=== PATIENT | female | born 1995 | race African-American/Black ===

== ENCOUNTER 2017-01-22 10:48 | Inpatient (IN) | payer OTHER ==
[~2017-01-22] VITALS: Ht 154.9 cm; Wt 77.1 kg
[~2017-01-22 10:48] MED LIST: ALBUTEROL0.09 MG/A1 INH; BUTALB-ACETAMI1 EACH PO; CIPRO500 M1 PO; DILAUDID2 M1 PO; IBUPROFEN800 MG PO; KEFLEX500 M1 PO; LEVSIN-SL0.125 MG SL; MULTI-DAY VITA1 EACH PO; NUVARING VAGIN1 EACH VG; NUVARING1 ICR VG; ONDANSETRON HCL4 MG PO; PREDNISONE 20MG20 MG PO; TESSALON PERLE100 MG PO; TORADOL10 MG PO; TRAMADOL50 MG PO; TYLENOL WITH C1 EACH PO; VICODIN 300 MG-1 TAB PO; VICODIN 500 MG-1 TAB PO; VITAFOL-OB CAP1 EACH PO; ZITHROMAX250 M1 PO; ZOFRAN ODT4 M1 SL; ZOFRAN ODT4 MG SL; ZOFRAN4 M1 PO; ZOFRAN4 M2 PO
--- NOTE | 2017-01-22 11:09 | NUR ---
22 YEAR FEMALE STATES THAT LAST SHE WOKE WITH WHOLE BODY PARALYSIS AND BODY PAIN WAS IN HOSPITAL ( [facility]) X 1 MONTH AND THEN WAS TRANSFERRED TO [facility] AND THEN TO [facility] IN [facility] . WAS THERE FOR OVER A MONTH AND WITH REHAB THERE SHE WALKED WITH WALKER FOR 2 MONTHS THEN GRADUATED WITH CANE. STATES THAT ON WEDNESDAY SHE STARTED WITH L LEG WEAK, SHOOTING PAIN UP HER WHOLE LEG. STATES THAT WHEN SHE TOUCHES HER LEG IT HURTS. PT CONCERNED THE SAME THING IS HAPPENING AGAIN.
--- NOTE | 2017-01-22 11:17 | NUR ---
APPRECIATE TRIAGE NOTE. PT TO ROOM 18 VIA WHEELCHAIR, ASSISTED TO STRETCHER. INFORMED WAITING PERFORMED AT THIS TIME, AWAITING PROVIDER EVAL.
--- NOTE | 2017-01-22 11:42 | ED UPPER/LOWER EXTREMITY COMPL ---
History of Present Illness General Chief Complaint: Lower Extremity Problems Stated Complaint: LT LEG WEAKNESS,PAIN Source: patient Exam Limitations: no limitations Allergies Coded Allergies: NO KNOWN ALLERGIES (07/12/16) Reconcile Medications Etonogestrel/Ethinyl Estradiol (Nuvaring Vaginal Ring) 0.12 MG -0.015 MG/24 HR VAG.RING 1 EACH VG Q30D CONTROL (Reported) use for 3 weeks, skip for 1 week Triage Note: 22 YEAR FEMALE STATES THAT LAST SHE WOKE WITH WHOLE BODY PARALYSIS AND BODY PAIN WAS IN HOSPITAL ( [facility]) X 1 MONTH AND THEN WAS TRANSFERRED TO [facility] AND THEN TO [facility] IN [facility] . WAS THERE FOR OVER A MONTH AND WITH REHAB THERE SHE WALKED WITH WALKER FOR 2 MONTHS THEN GRADUATED WITH CANE. STATES THAT ON WEDNESDAY SHE STARTED WITH L LEG WEAK, SHOOTING PAIN UP HER WHOLE LEG. STATES THAT WHEN SHE TOUCHES HER LEG IT HURTS. PT CONCERNED THE SAME THING IS HAPPENING AGAIN. Triage Nurses Notes Reviewed? yes : No Patient currently breastfeeds: No HPI: This patient is a 22-year-old female with a past mental history including ovarian torsion status post right oophorectomy, idiopathic ascending paralysis, and asthma who presented to the emergency department today for evaluation of left leg pain. The patient reported that the pain began this morning and has been getting progressively worse. She reported that the pain except a 10 out of 10 and is located from her knee, to the back of her calf, into her ankle. She reported that she is able to bear weight, but with difficulty. She reported that she did have an asthma attack last night and her breathing is still recovering. The patient reported that last May she woke up feeling pins and needles in her legs, primarily in her left leg. She reported that it felt like a charley horse. She went to school despite her pain and noticed when she was visiting her and her desk that she was unable to move her legs or get herself up out of her seat. She ended up at a hospital in [facility] where she was hospitalized for over a month. She reported that they wanted to do a muscle biopsy and a spinal tap, but she refused at that time. She was eventually transferred to a rehabilitation center and then to [place]. She eventually regained mobility and they never figured out why this paralysis occurred. The patient denied any fevers, chills, chest pain, numbness or tingling in her extremities. She did report that she vomited twice today with associated nausea and some mild abdominal pain. (RAYSHAWN BARNES PA-C) Vital Signs & Intake/Output Vital Signs & Intake/Output Vital Signs Date Time Temp Pulse Resp B/P B/P Pulse O2 O2 Flow FiO2 Mean Ox Delivery Rate 01/23 1005 Room Air 01/23 0810 98 Room Air 01/23 0800 Room Air 01/23 0720 98.0 81 18 141/81 93 Room Air / 0253 100 Room Air / 2125 98.0 87 20 158/87 100 Room Air 01/22 2027 97.5 88 18 138/89 99 Room Air Room Air 01/22 1823 97.8 88 18 129/83 100 Room Air 01/22 1456 97.1 79 18 139/82 100 Room Air ED Intake and Output 01/23 0000 01/22 1200 Intake Total 480 Output Total Balance 480 Intake, Oral 480 Patient 170 lb 175 lb Weight Weight Reported by Patient Measurement Method Past History Travel History Traveled to [place] past 21 day No Medical History Any Pertinent Medical History? see below for history Neurological: migraine, idiopathic paralysis EENT: NONE Cardiovascular: NONE Respiratory: NONE Gastrointestinal: NONE Hepatic: NONE Renal: NONE Musculoskeletal: NONE Psychiatric: NONE Endocrine: NONE Blood Disorders: NONE Cancer(s): NONE AGRICULTURAL EXTENSION SPECIALIST/Reproductive: NONE Surgical History Surgical History: OVARIAN TORSION, s/p roophorectomy Sep 2013 l ovarian cyst removal, c section Psychosocial History What is your primary language Welsh Tobacco Use: Never used Daily Tobacco Use Amount/Type: =< 4 Cigarettes daily ETOH Use: denies use Illicit Drug Use: denies illicit drug use Family History Hx Contributory? No (RAYSHAWN BARNES PA-C) Review of Systems Review of Systems Constitutional: Reports: no symptoms. EENTM: Reports: no symptoms. Respiratory: Reports: see HPI. Cardiovascular: Reports: no symptoms. Gastrointestinal/Abdominal: Reports: see HPI. Genitourinary: Reports: no symptoms. Musculoskeletal: Reports: see HPI. Skin: Reports: no symptoms. Neurological/Psychological: Reports: no symptoms. All Other Systems: Reviewed and Negative (RAYSHAWN BARNES PA-C) Physical Exam Physical Exam General Appearance: well developed/nourished, no apparent distress, alert, awake Comments: Well-developed well-nourished person in mild distress HEENT: Normal EENT exam, normocephalic/atraumatic, moist mucous membranes Pupils equally round and reactive to light. Neck: Supple, no lymphadenopathy Back: Antalgic gait Cardiovascular: Regular rate and rhythm with no murmurs, rubs, or gallops Respiratory: Chest nontender. No respiratory distress. Breath sounds clear to auscultation bilaterally with no wheezes, rales, or rhonchi Abdomen: Soft, nontender and nondistended. Normoactive bowel sounds. No organomegaly. No rebound or guarding. No peritoneal signs Left lower extremity: No effusions overlying erythema or ecchymosis to the joint spaces. Range of motion at the knee and ankle limited due to pain. Full range of motion of the hip. Tenderness to palpation over the calf with no overlying edema or erythema. Negative Homans sign. Dorsalis pedis and posterior tibialis pulses 2+ and strong. Diminished patellar deep tendon reflex, grade 1. Right lower extremity: No effusions overlying erythema or ecchymosis the joint spaces. Full range of motion of the hip, knee, and ankle. Nontender to palpation. Negative Homans sign. Dorsalis pedis and posterior tibialis pulses 2+ and strong. Normal patellar deep tendon reflex, grade 2 Neuro: Alert oriented x3, cranial nerves II through XII grossly intact. Skin: No appreciable rash on exposed skin, skin is warm and dry. Psych: Mood and affect is normal (CAMERON MEJIA,RAYSHAWN) Progress Differential Diagnosis: cellulitis, compartment syndrome, contusion, dislocation , DVT, gout, sprain, tendon injury, Guillain-[place] syndrome, muscle spasm, polymyositis Diagnostic Imaging: Viewed by Me: Ultrasound. Discussed w/RAD: Ultrasound. Radiology Impression: PATIENT: MADYSON CONDE PRESENT AGE: 22 PATIENT ACCOUNT NO: [id number] : 96 LOCATION: [facility] ORDERING PHYSICIAN: RAYSHAWN BARNES PA-C SERVICE DATE: 01/22/17115 EXAM TYPE: US - US-UNILATERAL VENOUS DOPPLER EXAMINATION: US TRIPLEX LOWER EXTREMITY, LEFT CLINICAL INFORMATION: Left calf pain. COMPARISON: None. TECHNIQUE: Color-flow triplex imaging with spectral analysis and compression Doppler were performed on the lower extremity. FINDINGS: Respiratory variation, normal compression and augmented flow are noted throughout the left lower extremity. The visualized common femoral vein, proximal greater saphenous vein, femoral vein, profunda femoral vein, popliteal vein and visualized mid calf venous segments show no evidence of deep venous thrombosis. There is no Honeycutt's cyst. IMPRESSION: Normal triplex scan without evidence of deep venous thrombosis involving the lower extremity. DICTATED BY: ALBINO EDMOND MD DATE/TIME DICTATED:01/22/171245 4 H YOUTH DEVELOPMENT SPECIALIST:MADELYN DATE/TIME TRANSCRIBED:01/22/171245 CONFIDENTIAL, DO NOT COPY WITHOUT APPROPRIATE AUTHORIZATION. <Electronically signed in Other Vendor System> SIGNED BY: ALBINO EDMOND MD 01/22/17 1250 Initial ED EKG: normal axis, normal intervals, normal p-waves, normal QRS complex, normal sinus rhythm, no ST T wave changes, 79 BEATS PER MINUTE Comments: 01/22/2017 1:52:11 PM: I spoke to on-call neurologist, Dr. Shi. He reported this patient is going to have workup done this time, he suggested a lumbar puncture at this time. He also recommended adding on a CK blood work. He reported that if the lumbar puncture is completely normal, he suggests discharging her and having her come back if the symptoms begin to progress again, at which time she should be admitted for further workup. 01/22/2017 3:17:23 PM: The patient tried to get hold of her doctor in [place], but was unable to. She reported that she would like to go ahead with a lumbar puncture. Discussed this patient with Dr. Dunlap. 01/22/2017 3:42:18 PM: Patient concented for lumbar puncture. (CAMERON MEJIA,RAYSHAWN) Plan of Care: Orders Procedure Date/time Status BASIC ELECTROLYTES PLUS BUN&CR 01/24 600 Active Regular Diet 01/23 B Active RT: Evaluation 01/23 823 Active CBC WITHOUT DIFFERENTIAL 01/23 600 Complete BASIC ELECTROLYTES PLUS BUN&CR 01/23 600 Complete THERAPIST ORDERS 01/23 Complete PT Evaluate & Treat 01/23 UN Active Lab Add-on Test 01/23 UNK Active Occupational Tx Eval & Treat 01/23 UNK Active PHYSICIAN CONSULT 01/23 UN Active Pathway - chart 01/22 2137 Active House Staff 01/22 2137 Active Patient Data 01/22 2137 Active Code Status 01/22 2137 Active Teach/Educate 01/22 2126 Active Pain Treatment and Response 01/22 2126 Active Nutritional Intake, Monitor 01/22 2126 Active Isolation 01/22 2126 Active Patient Care Conference 01/22 2126 Active Activity/Ambulation 01/22 2126 Active Patient Data 01/22 1959 Active VITAL CAPACITY MONITORING 01/22 193 Complete Patient Data 01/[address] in observation 01/22 180 Active Vital Signs 01/22 180 Active Code Status 01/22 1808 Complete CEREBROSPINAL FLUID CULTURE 01/22 1522 Active CYTOLOGY SPECIMEN 01/22 152 Active CSF TOTAL PROTEIN 01/22 1522 Complete CEREBROSPINAL FL CELL CT 01/22 1522 Complete CSF LDH 01/22 1522 Complete CSF GLUCOSE 01/22 1522 Complete PULMONARY FUNCTION TEST (GEN) 01/22 1351 Active Add-on Test (ER Only) 01/22 1351 Active PHOSPHORUS 01/22 1206 Complete MAGNESIUM 01/22 1206 Complete CREATINE PHOSPHOKINASE 01/22 1206 Complete VITAMIN B12 01/22 1206 Complete Intake & Output 01/22 1138 Active TRC EVALUATION (GEN) 01/22 UNK Complete Lab Add-on Test 01/22 UNK Active VTE Mechanical Prophylaxis 01/22 UNK Active NIH Stroke Scale 01/22 UNK Active Current Medications Sig/Suzan Start time Last Medication Dose Stop Time Status Admin Enoxaparin Sodium 40 MG DAILY 01/23 1000 AC 01/23 (Lovenox) 0949 Gabapentin 100 MG Q8 01/23 0058 AC 01/23 (Neurontin) 0631 Acetaminophen 650 MG Q6P PRN 01/22 2145 AC (Tylenol) Ibuprofen 600 MG Q6P PRN 01/22 2145 AC (Motrin) Oxycodone/ 2 TAB Q6P PRN 01/22 214 AC 01/23 Acetaminophen 0632 (Percocet) Laboratory Tests 01/23/17 06: Anion Gap 15, Estimated GFR > 60, BUN/Creatinine Ratio 17.1, CBC w Diff NO MAN DIFF REQ, RBC 4.48, MCV 86.3, MCH 28.9, RDW 13.1, MPV 9.0, Gran % 52.9, Lymphocytes % 39.7, Monocytes % 5.1, Eosinophils % 1.8, Basophils % 0.5, Absolute Granulocytes 3.5, Absolute Lymphocytes 2.6, Absolute Monocytes 0.3, Absolute Eosinophils 0.1, Absolute Basophils 0, PUBS MCHC 33.5 01/22/17 2340: Urinalysis MOD H, Urine Color YEL, Urine Clarity CLDY H, Urine pH 6.0, Ur Specific Brant >= 1.030, Urine Protein TRACE H, Urine Ketones TRACE H, Urine Nitrite NEG, Urine Bilirubin NEG, Urine Urobilinogen 0.2, Ur Leukocyte Esterase MOD H, Ur Microscopic SEDIMENT EXAMINED, Urine RBC 1-3, Urine WBC 50-75 H, Ur Epithelial Cells MANY H, Urine Bacteria MANY H, Urine Hemoglobin MOD H, Urine Glucose NEG, Urine Test NEGATIVE 01/22/17 1625: CSF Glucose 46, CSF LDH 245, CSF Total Protein 25 01/22/17 1625: CSF WBC 2, CSF RBC 0, CSF Comment 01/22/17 1451: Lactic Acid Cancelled Microbiology 01/22 1625 CENT N S: CSF Culture - RES 01/22 1625 CENT N S: Gram Stain - RES Departure Departure Disposition: STILL A PATIENT Condition: Stable Clinical Impression Primary Impression: Muscle weakness of lower extremity Referrals: PATIENT HAS NO PRIMARY CARE DR (PCP/Family) Departure Forms: Customer Survey General Discharge Information Observation Note Spoke With: PORTIA WESLEY MD Physician Advisor Notified: JESSICA GAMEZ,RHYS [facility] [address] Patient In: Non-ED OBS Care Area Rationale for Observation: My rational for observation is as follows [this patient is a 22-year-old female who presented to the emergency department today for evaluation of left leg weakness and pain. History of idiopathic paralysis, onset the same. This patient should be observed for pain management, neurology consultation, EMG, trend labs, follow-up cultures, and close monitoring. Given this patient's significant medical history, premature discharge could prove medically harmful.] . (CAMERON MEJIA,RAYSHAWN) PA/HEEL WASHER STRINGING MACHINE OPERATOR Co-Sign Statement Statement: ED Attending supervision documentation- [X] I saw and evaluated the patient. I have also reviewed all the pertinent lab results and diagnostic results. I agree with the findings and the plan of care as documented in the PA's/HEEL WASHER STRINGING MACHINE OPERATOR's documentation. [X] I have reviewed the ED Record and agree with the PA's/HEEL WASHER STRINGING MACHINE OPERATOR's documentation. [] Additions or exceptions (if any) to the PAs/HEEL WASHER STRINGING MACHINE OPERATOR's note and plan are summarized below: [] (HUGO MD,GIAN) Procedures Additional Procedures Additional Procedures: lumbar puncture Progress: Lumbar puncture was performed by me I discussed risks and benefits with patient who agrees and signed consent form. Patient was placed in left lateral position Prior to the procedure there was no evidence of increased intracranial pressure Using sterile technique I applied Betadine to the L3-L4 intravertebral DISC SPACE was palpated Using a 30-gauge needle approximately 10 mL of intradermal localized anesthesia was successful been using a 1/2 inch 22-gauge needle I used 15 mL of 1% lidocaine for subdermal local anesthesia. I was able to ascertain clear central spinal fluid Tubes were filled no traumatic tap was noted Patient tolerated well needle was removed direct pressure was applied for 5 minutes bandage was applied patient was placed in 30 of head of bed (EDGARDO KESSLER) (EDGARDO KESSLER)
--- NOTE | 2017-01-22 11:44 | NUR ---
DION CAMERON TO BEDSIDE FOR EVAL.
--- NOTE | 2017-01-22 12:07 | NUR ---
BLOOD DRAWN AND SENT TO LAB. SST,LAV X 2,YATES,BLUE. PT AWARE OF NEED FOR URINE SPECIMEN. PT ON PHONE FACE TIMING.
--- NOTE | 2017-01-22 12:15 | NUR ---
RT CALLED FOR DANNY.
--- NOTE | 2017-01-22 12:22 | NUR ---
PT TO US BY HAYLIE.
[2017-01-22 12:33] LABS: ABSOLUTE BASOPHIL COUNT 0 /CUMM (0.0-0.2); ABSOLUTE EOSINOPHIL COUNT 0.1 /CUMM (0.0-0.7); ABSOLUTE GRANULOCYTE CT 3.8 /CUMM (1.4-6.5); ABSOLUTE LYMPH COUNT 2.3 /CUMM (1.2-3.4); ABSOLUTE MONOCYTE COUNT 0.3 /CUMM (0.10-0.60); BASOPHIL % 0.5 % (0.0-2.0); EOSINOPHIL % 1.8 % (0-5); GRANULOCYTE % 57.9 % (42.2-75.2); HEMATOCRIT 38.9 % (37-47); MEAN CORPUSCULAR HGB 28.9 PG (27.0-31.0); MEAN CORPUSCULAR HGB CONC 33.9 G/DL (33.0-37.0); MEAN CORPUSCULAR VOLUME 85.1 FL (81.0-99.0); MEAN PLATELET VOLUME 8.4 FL (7.4-10.4); PLATELET COUNT 325 /CUMM (130-400); RBC DISTRIBUTION WIDTH 12.7 % (11.5-14.5); RED BLOOD CELL CT 4.57 /CUMM (4.20-5.40); WHITE BLOOD CELL COUNT 6.6 /CUMM (4.8-10.8)
--- NOTE | 2017-01-22 12:50 | ULTRASOUND REPORT ---
EXAMINATION: US TRIPLEX LOWER EXTREMITY, LEFT CLINICAL INFORMATION: Left calf pain. COMPARISON: None. TECHNIQUE: Color-flow triplex imaging with spectral analysis and compression Doppler were performed on the lower extremity. FINDINGS: Respiratory variation, normal compression and augmented flow are noted throughout the left lower extremity. The visualized common femoral vein, proximal greater saphenous vein, femoral vein, profunda femoral vein, popliteal vein and visualized mid calf venous segments show no evidence of deep venous thrombosis. There is no Honeycutt's cyst. IMPRESSION: Normal triplex scan without evidence of deep venous thrombosis involving the lower extremity.
--- NOTE | 2017-01-22 14:18 | NUR ---
PA CAMERON TO BEDSIDE TO DISCUSS RESULTS AND POC.
--- NOTE | 2017-01-22 14:26 | NUR ---
PT MEDICATED PER EMAR.
--- NOTE | 2017-01-22 15:48 | NUR ---
DR. ARIAS TO BEDSIDE FOR LUMBAR PUNCTURE PROCEDURE.
--- NOTE | 2017-01-22 16:12 | NUR ---
KUNAL GARZA AT BEDSIDE FOR PROCEDURE.
--- NOTE | 2017-01-22 20:16 | NUR ---
PT ASSIGNMENT [id number]
--- NOTE | 2017-01-22 20:27 | History & Physical ---
TC DURAN MD 01/22/172026: General Information and HPI MD Statement: I have seen and personally examined MADYSON CIFUENTES and documented this H&P. The patient is a 22 year old F who presented with a patient stated chief complaint of left lower extremity pain and weakness. Source of Information: patient Exam Limitations: no limitations History of Present Illness: Ms. Cifuentes is a pleasant 22 year old female with PMH idiopathic ascending paralysis, asthma and migraine and PSH oophorectomy for right ovarian torsion who presents to [place] with chief complaint of left lower extremity pain and weakness. According to the patient, since Wednesday she has noted severe left lower extremity pain from the knee down that is associated with severe weakness limiting her lower extremity movement and ambulation. The pain is a 10/ 10 and described as a "charley horse". She also notes right lower extremity pain from the calf down, though this is not as severe nor is her weakness as severe. Assocaited symptoms at this time include difficulty bearing weight on her left leg, an asthma attack last night requring several uses of her inhaler, two episodes of vomiting with abdominal pain and nausea yesterday, current mild dizziness and occasional blurriness/blotchiness of her vision. She also endorses chronic lower abdominal pain since her oophorectomy, chest discomfort for three months non-exertional in nature), intermittent migraine headaches, decreased functionality over the last several months and a few episodes of inability to hold her urine. Of note, patient has previous admission in May to [facility] for similar symptoms. At that itme, she reported this same charley horse in her left calf and paralysis of her left leg. She remained in the hospital for about one month and was discharge to a rehabilitation center in [place] where she lives. She was discharged home without definitive diagnosis at that time. However, on discussion with ED PA this evening, patient's neurologist called the ER to discuss patient and mentioned prior head MRI findings of "early demyelinating disease". At this point, we do not have access to these records. Patient is currently in [place] visiting her father who lives in [place]. She recently spent time in a forest in [place], though she denies any tick bite. Family history is significant for a grandmother with multiple sclerosis who has since . Her parents bother have hypertension. Social history is negative for tobacco, alcohol or illicit drug use. She is not sexually active and uses a nuvaring. She has a walker at home but does not use this or any assist device for ambulation. Allergies/Medications Allergies: Coded Allergies: NO KNOWN ALLERGIES (07/12/16) Home Med list Etonogestrel/Ethinyl Estradiol (Nuvaring Vaginal Ring) 0.12 MG -0.015 MG/24 HR VAG.RING 1 EACH VG Q30D CONTROL (Reported) use for 3 weeks, skip for 1 week Compliance With Home Meds: GOOD Past History Travel History Traveled to [place] past 21 day No Medical History Neurological: migraine, idiopathic paralysis EENT: NONE Cardiovascular: NONE Respiratory: NONE Gastrointestinal: NONE Hepatic: NONE Renal: NONE Musculoskeletal: NONE Psychiatric: NONE Endocrine: NONE Blood Disorders: NONE Cancer(s): NONE PROFESSOR OF 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 Home Who Do You Live With? Family Services at Home: None Primary Language: Ghanaian Smoking Status: Never Smoked ETOH Use: denies use Illicit Drug Use: denies illicit drug use Functional Ability ADLs Independent: dressing, eating, toileting, bathing. Ambulation: independent, walker IADLs Independent: shopping, housework, finances, food prep, telephone, transportation , medication admin. Sexual History Sexually Active No Review of Systems Review of Systems Constitutional: Reports: weakness. Denies: chills, fever. EENTM: Reports: blurred vision, visual changes. Denies: hearing changes, nasal congestion, throat pain. Cardiovascular: Reports: chest pain. Denies: palpitations, peripheral edema, syncope. Respiratory: Denies: cough, wheezing. GI: Reports: abdominal pain (Lower abdominal pain, chronic), nausea, vomiting. Denies: constipation, diarrhea. Genitourinary: Reports: see HPI. Denies: dysuria. Musculoskeletal: Reports: joint pain, muscle pain. Denies: neck pain. Skin: Denies: lesions, rash. Neurological/Psychological: Reports: numbness, paresthesia, tingling, unable to move lower ext (Left >R), weakness. Denies: confusion, headache. Hematologic/Endocrine: Denies: bruising, bleeding. Immunologic/Allergic: Denies: splenectomy. All Other Systems: Reviewed and Negative Exam & Diagnostic Data Last 24 Hrs of Vital Signs/I&O Vital Signs Date Time Temp Pulse Resp B/P B/P Pulse O2 O2 Flow FiO2 Mean Ox Delivery Rate 01/22 2125 98.0 87 20 158/87 100 Room Air 01/22 2027 97.5 88 18 138/89 99 Room Air Room Air 01/22 1823 97.8 88 18 129/83 100 Room Air 01/22 1456 97.1 79 18 139/82 100 Room Air 01/22 1304 97.2 87 18 131/85 100 Room Air 01/22 1103 97.9 88 18 140/80 99 Room Air Intake & Output 01/22 1600 01/22 0800 01/22 0000 Intake Total Output Total Balance Patient 175 lb Weight Physical Exam General Appearance Alert, Oriented X3, Cooperative, No Acute Distress Skin No Rashes, No Significant Lesion Skin Temp/Moisture Exam: Warm/Dry HEENT Atraumatic, PERRLA, EOMI, Mucous Membr. moist/pink Neck Supple, No JVD, +2 Carotid Pulse wo Bruit Lymphatic Cervical nl Cardiovascular Regular Rate, Normal S1, Normal S2, No Murmurs Lungs Clear to Auscultation, Normal Air Movement Abdomen Normal Bowel Sounds, Soft, No Masses Neurological Normal Speech, Normal Tone, Sensation Intact, Cranial Nerves 3-12 NL, Patient unable to participate in strength testing due to severe pain of lower limbs. Strength of upper extremities within normal limits. Negative babinski sign. Normal propioception. ROM of lower extremities limited due to pain. Extremities No Clubbing, No Cyanosis, No Edema, Normal Pulses, Tenderness to palpation of left calf without overlaying erythema/edema. Tenderness of right calf as well with similar exam to left. Vascular Normal Pulses, Pulses Symmetrical Last 24 Hrs of Labs/Silvano: Laboratory Tests 01/22/17 1625: CSF Glucose 46, CSF LDH 245, CSF Total Protein 25 01/22/17 1625: CSF WBC 2, CSF RBC 0, CSF Comment 01/22/17 1206: Anion Gap 14, Estimated GFR > 60, BUN/Creatinine Ratio 12.9, Glucose 82, Lactic Acid 1.8, Calcium 9.7, Phosphorus Pending, Magnesium Pending, Total Bilirubin 0.7, AST 41 H, ALT 48, Alkaline Phosphatase 55, Creatine Kinase 124, C-React Prot High Sens 4.5 H, Total Protein 7.8, Albumin 4.5, Globulin 3.3, Albumin/ Globulin Ratio 1.4, CBC w Diff NO MAN DIFF REQ, RBC 4.57, MCV 85.1, MCH 28.9, RDW 12.7, MPV 8.4, Gran % 57.9, Lymphocytes % 34.5, Monocytes % 5.3, Eosinophils % 1.8, Basophils % 0.5, Absolute Granulocytes 3.8, Absolute Lymphocytes 2.3, Absolute Monocytes 0.3, Absolute Eosinophils 0.1, Absolute Basophils 0, PUBS MCHC 33.9, ESR Westergren 24 H Microbiology 01/22 1625 CENT N S: CSF Culture - RECD 01/22 1625 CENT N S: Gram Stain - RECD 01/22 1151 URINE ROUT: Urine Culture - ORD Diagnostic Data EKG Results NSR HR 78 bpm, QTC 411, new T wave inversion lead III. Other Results Left lower extremity doppler: IMPRESSION: Normal triplex scan without evidence of deep venous thrombosis involving the lower extremity. Assessment/Plan Assessment: Madyson Cifuentes is a 22 year old female with PMH idiopathic ascending paralysis, asthma and migraine headache who presents with chief complaint of left lower extremity pain and weakness. These symptoms began on Wednesday, have progressively worsened and are interfering with her ability to ambulate. The pain is described as a "charley horse" with "pins and needles" and is a 10/10 on the pain scale. This is associated with severe weakness, inability to move her foot, nausea, abdominal pain, vomiting and occasional blurry vision. In the ED: Vital signs showed T 97.2, HR 87, RR 18, BP 131/85 and O2 saturation of 100% on RA. Labs showed unremarkable CBC and BEP. AST slightly elevated to 41 and CRP high to 4.5. Venous doppler was performed and showed no signs of DVT in the left leg. EKG showed NSR HR 78 bpm, QTC 411, T wave inversion lead III. Patient had a lumbar puncture performed in the ED and the CSF results are as follows: WBC 2, RBC 0, Glu 46, LDH 245, total protein 25. Patient will be admitted as OBSERVATION to the general medicine floor and the following is the management: 1. Left lower extremity pain and weakness * DDx: Consists of but not limited to MSK pain vs MS vs GBS vs conversion disorder vs conversion disorder * Admit to general medicine as an observation * DVT ruled out with negative doppler * Pain control with tylenol for mild pain, ibuprofen for moderate pain and percocet for severe pain * CSF studies WNL * Consider obtaining head MRI to evaluate for demyelination/underlying pathology of weakness vs obtaining records from PCP in [place] * Monitor respiratory status closely, low threshold for intubation if respiratory muscles impaired (serial VC and NIF) * Neuro consult in AM, neurochecks Q4 * Gabapentin 100 mg PO Q8 * Follow up B12 * OT/PT consult FULL CODE DVTP: Lovenox Regular diet Mild to severe pain pathway As Ranked By This Provider Problem List: 1. Muscle weakness of lower extremity Core Measures/Miscellaneous Acute Coronary Syndrome ACS Diagnosis: No Cerebrovascular Accident CVA/TIA Diagnosis: No Congestive Heart Failure CHF Diagnosis: No Venous Thromboembolism VTE Risk Factors: Acute medical illness, Age > 40, Obesity No [facility] VTE prophylaxis d/t: No contraindications No VTE Pharm Prophylaxis d/t: No contraindications VTE Diagnosis: No VTE Type: NONE VTE Confirmed by (Test): NONE Severe Sepsis Severe Sepsis Present: No Septic Shock Septic Shock Present: No Miscellaneous Documentation Attending Case Discussed With: PORTIA EWSLEY MD Primary Care Physician: PATIENT HAS NO PRIMARY CARE DR Patient sees these Specialists PCP in [place]. Level of Patient Care: General Medicine MARIANN RIVAS 01/22/17 2336: Resident Review Statement Resident Statement: examined this patient, discussed with spring internship, agreed with spring internship Other Findings: Patient is 22-year-old -Hungarian female with past medical history significant for childhood asthma, migraine headaches, etiopathic ascending paralysis with questionable demyelinating disorder, history of ovarian cyst torsion status post nephrectomy came to emergency room with chief complaint of severe bilateral lower extremity pain and left lower extremity weakness since Wednesday. Of note patient had similar kind of picture in June 2017 when she had left lower extremity paralysis and also left upper extremity severe pain where she stayed in hospital for more than a month and was discharged to rehabilitation. She spends significant amount of time and was discharged home with cane. She was doing better for couple of months and was able to ambulate with walker or cane. She is resident of [facility] and came here last week to see her father. Last Wednesday she felt the same way that she had a few months ago where her left lower extremity was numb, tingling and had severe muscular cramps. She also feels very weak and was not able to put weight on left lower extremity. She endorses that she had bilateral lower extremity pain but left-sided be more than right. She denied any recent respiratory tract infection or diarrhea. She went for hiking last week. But denied any tick bite. She had some episodes of blurring/visual loss temporarily. She admits that she had we abdominal pain as well. Of note patient had significant family history of MS in her grandmother and great-grandmother. Neurologist Dr. Shi was consulted by ER physicians/PAs and IP was done which was nonsignificant Her vital signs on admission were temperature 97.9, pulse 88, respiratory rate 18, blood pressure 140/80 mmHg and she was saturating 99% Admission labs are significant for WBC count 6.6, hemoglobin 13.2, hematocrit 38.9, platelet count 325, sodium 139, potassium 4.7, chloride 103, BUN 9, creatinine 0.7, lactic acid 1.9, magnesium 1.8, C-reactive protein is 4.5 and creatinine kinase is 124. Lower extremity venous Doppler was negative for any DVT Physical examination showed Alert and oriented 3 Head atraumatic Neck supple HEENT PERRLA Chest clear to auscultate Heart S1-S2 normal with no added sounds Abdomen soft nondistended with no organomegaly Lower extremity showed no cyanosis, edema or clubbing Neuro examination was significant for left lower extremity weakness with normal sensations. Patient was able to wiggle and move her right lower extremity and was able to slightly move her left lower extremity with was complaining of extreme pain on movement. No ERYTHEMA, cellulitis or rash noted We will admit patient on general medical floor 1. Idiopathic left lower extremity weakness for questionable Guillain-Rodas/ rest number demyelinating disorder/MS 2. History of asthma Plan We will keep neuro checks every 4 hours 2. We will request neurology evaluation in a.m. and patient might imaging study including MRI of brain and spine to rule out MS 3. We will request medical records from [facility]. 4. We'll request PT and OT evaluation in a.m. 5. We will check vitamin B12 level on her 6. We will start her on gabapentin 100 mg every 8 hours Regular diet Pharmacological DVT prophylaxis Patient is full code PORTIA WESLEY 01/23/17 0655: Attending MD Review Statement Attending Statement Attending MD Statement: examined this patient, discuss w/resident/PA/[employer] S[employer]ET[employer] SPECIALIST, agreed w/resident/PA/[employer] SPECTROMETRY SPECIALIST, reviewed EMR data (avail), reviewed images, amended to note Attending Assessment/Plan: CC: Left lower extremity pain and weakness PMH: None Patient comes in ER for bilateral lower extremity pain and weakness. symptoms are more on left than right. Pain started yesterday, it was so severe that she could not ambulate and was dragging her left foot, pain in pins and needles type and charley horse. Radiating up to thigh. Patient gets this symptoms intermittently and resolved on their own but last May patient was admitted in the hospital for similar symptoms, it was followed by progressive weakness bilateral lower extremity and upper extremity, severe pain all over the body. As patient could not walk she was discharged to rehabilitation, regained her strength after 1 month according to her. She is not aware of any particular diagnosis. Neurologist in [place] was called by ER physician regarding the details, MRI read mentioned Demyelinating process (?brain Vs spinal cord), Neurologist was called from ER, Dr. Shi suggested lumbar puncture Vitals unremarkable On exam : A O 3, cooperative, no acute distress, neck supple, JVD normal, no lymphadenopathy, mucosa moist, no dependent edema, no obvious skin rashes or inflammation CVS: S1-S2, RRR. RS: Clear to auscultate bilaterally. Abdomen: Soft , NT, ND, bowel sounds present. Bilateral upper extremity strength and reflexes normal, facial nerves intact, patient does not move left lower extremity, mild touch she says it is painful, 3 over 5 strength in left lower extremity, 4 over 5 strength in right lower extremity, reflexes normal. Labs: CBC, BMP, unremarkable, AST 41, CK 124, CRP 4.5 UA positive for leukocyte esterase, moderate hemoglobin, 1-3 RBC Lumbar puncture: WBC 2, RBC 0, glucose 46, protein 25 Left lower extremity venous Doppler: No evidence of DVT A and P Severe pain and weakness in left lower extremity > right lower extremity, unclear etiology, previous similar episode was complicated by worsening of weakness, now on ambulation, ? Demyelinating disease. Unclear etiology at this time - Place in observation in general medicine - neurochecks every 4 hours, - serial VC and NIF. - Neuro consult in a.m. - DVT prophylaxis with Alps and Lovenox - Adequate pain control - OT PT evaluation - Small dose of gabapentin - Check B12 level
--- NOTE | 2017-01-22 20:40 | NUR ---
REPORT GIVEN TO FELI YANG. [employer] CALLED FOR PT TRANSPORT.
--- NOTE | 2017-01-22 20:50 | NUR ---
HOUSE STAFF TO BEDSIDE FOR EVALUATION, AWARE THAT PT IS BOOKED FOR TRANSPORT.
[2017-01-22 21:25] VITALS: BP 158/87
--- NOTE | 2017-01-23 00:28 | NUR ---
NURSE NOTE: PT ARRIVED TO FLOOR 2119 VIA TRANSPORT.REPORT RECEIVED FROM ECTOR IN ED. PT AAOX3, RA. COMPLAINING OF SEVERE PAIN MEDICATED APPRIOPRATELY. PT ASSESSED, PT UNABLE TO MOVE LLE. RLE WEAK. PT ABLE TO TURN AND PIVOT TO COMMODE. VSS. REFUSING BED ALARM AND FALL PX. CALLS APPRIOPRATELY.
[2017-01-23 07:20] VITALS: BP 141/81
--- NOTE | 2017-01-23 07:35 | PN- Housestaff ---
MARIANN RIVAS 01/23/17 0735: Subjective Follow-up For: Severe pain and weakness in left lower extremity Complaints: bilateral lower extremity pain Subjective: Patient was seen and examined this morning. She was lying comfortably on bed but she still complained of bilateral lower extremity pain left more than right. She remained afebrile with vital signs of temperature 98.0, pulse 81, blood pressure 141/81 and she was saturating 93% on room air. She has nonsignificant labs. She will be evaluated by neurology today and might need imaging study but that could be done as outpatient. Patient is on 4 hour neuro checks and there is no significant change. Review of Systems Constitutional: Denies: chills, diaphoresis. Cardiovascular: Denies: chest pain, edema. Respiratory: Denies: cough, orthopnea. Gastrointestinal: Denies: bloating, constipation. Genitourinary: Reports: frequency. Musculoskeletal: Reports: see HPI, muscle pain. Denies: gout, joint pain. Objective Last 24 Hrs of Vital Signs/I&O Vital Signs Date Time Temp Pulse Resp B/P B/P Pulse O2 O2 Flow FiO2 Mean Ox Delivery Rate 01/23 0720 98.0 81 18 141/81 93 Room Air 01/23 0253 100 Room Air 01/22 2125 98.0 87 20 158/87 100 Room Air 01/22 2027 97.5 88 18 138/89 99 Room Air Room Air 01/22 1823 97.8 88 18 129/83 100 Room Air 01/22 1456 97.1 79 18 139/82 100 Room Air 01/22 1304 97.2 87 18 131/85 100 Room Air 01/22 1103 97.9 88 18 140/80 99 Room Air Intake & Output 01/23 0800 01/23 0000 01/22 1600 Intake Total 480 480 Output Total 500 Balance 480 -20 Intake, Oral 480 480 Output, Urine 500 Patient 170 lb 170 lb 175 lb Weight Weight Reported by Patient Measurement Method Physical Exam General Appearance: Alert, Oriented X3, Cooperative Cardiovascular: Regular Rate, Normal S1, Normal S2, No Murmurs Lungs: Normal Air Movement Extremities: No Clubbing, No Cyanosis, No Edema Current Medications: Current Medications Sig/Suzan Start time Last Medication Dose Route Stop Time Status Admin Acetaminophen 650 MG Q6P PRN 01/22 2145 AC PO Albuterol Sulfate 3 ML ONCE ONE 01/22 1200 DC 01/22 INH 01/22 1201 1905 Enoxaparin Sodium 40 MG DAILY 01/23 1000 AC SC Gabapentin 100 MG Q8 01/23 0058 AC 01/23 PO 0631 Ibuprofen 600 MG Q6P PRN 01/22 2145 AC PO Ipratropium [place] 2.5 ML ONCE ONE 01/22 1200 DC 01/22 INH 01/22 1201 1905 Lidocaine 0 .STK-MED ONE 01/22 1531 DC .ROUTE Lidocaine 20 ML ONCE ONE 01/22 1530 DC 01/22 ID 01/22 1531 1905 Morphine Sulfate 1 MG ONCE ONE 01/22 2200 DC 01/22 IV 01/22 220 2221 Morphine Sulfate 0 .STK-MED ONE 01/22 1652 DC .ROUTE Morphine Sulfate 2 MG ONCE ONE 01/22 1515 DC 01/22 IM 01/22 1516 1654 Oxycodone/ 2 TAB Q6P PRN 01/22 2145 AC 01/23 Acetaminophen PO 0632 Tramadol HCl 0 .STK-MED ONE 01/22 1425 DC PO Tramadol HCl 50 MG ONCE ONE 01/22 1300 DC 01/22 PO 01/22 1301 1426 Last 24 Hrs of Lab/Silvano Results Last 24 Hrs of Labs/Mics: Laboratory Tests 01/23/17 0605: Sodium Pending, Potassium Pending, Chloride Pending, Carbon Dioxide Pending, Anion Gap Pending, BUN Pending, Creatinine Pending, BUN/Creatinine Ratio Pending , CBC w Diff Pending, WBC Pending, RBC Pending, Hgb Pending, Hct Pending, MCV Pending, MCH Pending, RDW Pending, Plt Count Pending, MPV Pending, PUBS MCHC Pending 01/22/17 2340: Urinalysis MOD H, Urine Color YEL, Urine Clarity CLDY H, Urine pH 6.0, Ur Specific [place] >= 1.030, Urine Protein TRACE H, Urine Ketones TRACE H, Urine Nitrite NEG, Urine Bilirubin NEG, Urine Urobilinogen 0.2, Ur Leukocyte Esterase MOD H, Ur Microscopic SEDIMENT EXAMINED, Urine RBC 1-3, Urine WBC 50-75 H, Ur Epithelial Cells MANY H, Urine Bacteria MANY H, Urine Hemoglobin MOD H, Urine Glucose NEG, Urine Test NEGATIVE 01/22/17 1625: CSF Glucose 46, CSF LDH 245, CSF Total Protein 25 01/22/17 1625: CSF WBC 2, CSF RBC 0, CSF Comment 01/22/17 1451: Lactic Acid Cancelled 01/22/17 1206: Anion Gap 14, Estimated GFR > 60, BUN/Creatinine Ratio 12.9, Glucose 82, Lactic Acid 1.8, Calcium 9.7, Phosphorus 4.0, Magnesium 1.8, Total Bilirubin 0.7, AST 41 H, ALT 48, Alkaline Phosphatase 55, Creatine Kinase 124, C-React Prot High Sens 4.5 H, Total Protein 7.8, Albumin 4.5, Globulin 3.3, Albumin/Globulin Ratio 1.4, Vitamin B12 359, CBC w Diff NO MAN DIFF REQ, RBC 4.57, MCV 85.1, MCH 28.9, RDW 12.7, MPV 8.4, Gran % 57.9, Lymphocytes % 34.5, Monocytes % 5.3, Eosinophils % 1.8, Basophils % 0.5, Absolute Granulocytes 3.8, Absolute Lymphocytes 2.3, Absolute Monocytes 0.3, Absolute Eosinophils 0.1, Absolute Basophils 0, PUBS MCHC 33.9, ESR Westergren 24 H Microbiology 01/22 1625 CENT N S: CSF Culture - RECD 01/22 1625 CENT N S: Gram Stain - RECD 01/22 1151 URINE ROUT: Urine Culture - COLB Assessment/Plan Assessment: Patient is 22-year-old -Bangladeshi female with history of left-sided weakness almost 6 months ago came with chief complaint of severe pain and weakness in left lower extremity more than right lower extremity for on clear etiology with worsening of her symptoms. She had questionable history of demyelinating disease We will admit patient on general medical floor 1. Idiopathic left lower extremity weakness for questionable Guillain-Rodas/ rest number demyelinating disorder/MS 2. History of asthma Plan We will keep neuro checks every 4 hours 2. We will request neurology evaluation in a.m. and patient might imaging study including MRI of brain and spine to rule out MS 3. We will request medical records from [facility]. 4. We'll request PT and OT evaluation today 5. We will check vitamin B12 level 6. We will start her on gabapentin 100 mg every 8 hours 7. Patient would need further imaging studies including brain and spine MRI but that could be done as outpatient if she remains stable Regular diet Pharmacological DVT prophylaxis Patient is full code Problem List: 1. Muscle weakness of lower extremity Pain Ratin Pain Location: Left lower extremity Pain Goal: Pain 4 or less Pain Plan: Gabapentin, ibuprofen, Percocet Tomorrow's Labs & Rationales: basic electrolyte panel ALEXANDRO GAMEZBONNIE 01/23/17 1257: Attending Review Statement Attending Statement Attending MD Statement: examined this patient, discuss w/resident/PA/ELECTRIC GOLF CART REPAIRER, agreed w/resident/PA/ELECTRIC GOLF CART REPAIRER, reviewed EMR data (avail), discussed with nursing, discussed with case mgmt, amended to note Attending Assessment/Plan: Patient seen and examined. Resting comfortably in bed and does not appear to be in acute distress. Patient reports chronic lower extremity weakness with days where she has extreme difficulty ambulating. She reports over the past few days how weakness has been worse and she came to the hospital for evaluation as she was now unable to ambulate. She had similar episode last year and ended up [facility]. She was therefore less than a month before being discharged home. She reports family history of multiple sclerosis in several family members. Lumbar puncture done in the emergency room overnight showed no acute pathology. CPK level is within normal limits. Gen. appearance: Well-developed, not in any acute distress Heart: S1-S2 regular Lungs: Clear bilaterally Abdomen: Soft, nontender Extremities: No pedal edema Skin: Intact with no rashes Neurologic: Alert and oriented 3. Power is 5 over 5 right and left upper extremities. Power is 1 over 5 bilateral lower extremities. Problems: -Acute on chronic lower extremity weakness with inability to walk. -Concern for demyelinating disease. However records of MRI showing this finding are not available here. -Pain syndrome Plan: -Awaiting evaluation by the physical therapy service for safe discharge planning. -Awaiting evaluation by the neurology service for further recommendations as patient continues to be unable to ambulate. She will need further evaluation with an MRI to rule out demyelinating disease. -Patient is requesting for opioid analgesia for pain control. Reports the pain is in the lower extremities. Recommend checking her [place] prescription monitoring program record.
[2017-01-23 09:10] LABS: ABSOLUTE BASOPHIL COUNT 0 /CUMM (0.0-0.2); ABSOLUTE EOSINOPHIL COUNT 0.1 /CUMM (0.0-0.7); ABSOLUTE GRANULOCYTE CT 3.5 /CUMM (1.4-6.5); ABSOLUTE LYMPH COUNT 2.6 /CUMM (1.2-3.4); ABSOLUTE MONOCYTE COUNT 0.3 /CUMM (0.10-0.60); BASOPHIL % 0.5 % (0.0-2.0); EOSINOPHIL % 1.8 % (0-5); GRANULOCYTE % 52.9 % (42.2-75.2); HEMATOCRIT 38.7 % (37-47); MEAN CORPUSCULAR HGB 28.9 PG (27.0-31.0); MEAN CORPUSCULAR HGB CONC 33.5 G/DL (33.0-37.0); MEAN CORPUSCULAR VOLUME 86.3 FL (81.0-99.0); PLATELET COUNT 310 /CUMM (130-400); RBC DISTRIBUTION WIDTH 13.1 % (11.5-14.5); RED BLOOD CELL CT 4.48 /CUMM (4.20-5.40); WHITE BLOOD CELL COUNT 6.6 /CUMM (4.8-10.8)
--- NOTE | 2017-01-23 10:00 | NUR ---
NURSING NOTE: PATIENT VISITED BY PT IN AM, PT UNABLE TO WORK WITH PATIENT ACTIVELY. PATIENT HAS VERY MINIMAL MOVEMENT OF HER LOWER EXTREMITIES. WILL CONTINUE TO MONITOR
--- NOTE | 2017-01-23 11:09 | NUR ---
Unable to get accurate assessment of functional abilities upon arrival 2* to sig. pain when standing. Pt also appearing very lethargic and limited during attempted session. After discussing with nursing, evaluation will be placed on hold until neuro is consulted and additional tests are performed.
--- NOTE | 2017-01-23 14:54 | Cons- Neurology ---
General Information and HPI Consulting Request Date of Consult: 01/23/17 Requested By: PORTIA WESLEY MD History of Present Illness: 22-year-old -Niuean female admitted with a 5 day history of lower extremity pains, paresthesias and reported weakness. Patient reports having been admitted to [facility] in May of last year due to paralysis. She reportedly stayed in hospital for approximately 1 month however upon discharge, she was told that her condition may have been due to "stress". Since that time, she has been managing activities of daily living although states that her legs may fatigue or hurt, precluding her ability to work. Over the past 5 days she has developed pains in the lower extremities bilaterally, chiefly distal to the knee, left greater than right. Rides a charley horse-like discomfort in the calves and pins and needles sensations in the feet. Additional somatic complaints include abdominal discomfort, nausea and vomiting, and asthma attack, dizziness, blurred vision, chest discomfort and headache. There has been no rash, trauma or weight loss. Progress the patient resides with both a parent in [facility] and here in [place]. She has reportedly been evaluated by [facility], she believes at [facility]. She is unaware of the names of her physicians. Allergies/Medications Allergies: Coded Allergies: NO KNOWN ALLERGIES (07/12/16) Home Med List: Etonogestrel/Ethinyl Estradiol (Nuvaring Vaginal Ring) 0.12 MG -0.015 MG/24 HR VAG.RING 1 EACH VG Q30D CONTROL (Reported) use for 3 weeks, skip for 1 week Review of Systems Review of Systems: As above, patient has described recent abdominal discomfort, nausea, vomiting, and asthmatic attack, dizziness, blurred vision, chest discomfort, headache, leg weakness, leg pains and tingling in the feet. There is been no weight loss, fever, rash or joint inflammation. 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 Home Who Do You Live With? Family Services at Home: None Primary Language: Czech Smoking Status: Never Smoked ETOH Use: denies use Illicit Drug Use: denies illicit drug use Functional Ability ADLs Independent: dressing, eating, toileting, bathing. Ambulation: independent, walker IADLs Independent: shopping, housework, finances, food prep, telephone, transportation , medication admin. Exam & Diagnostic Data Vital Signs and I&O Vital Signs Date Time Temp Pulse Resp B/P B/P Pulse O2 O2 Flow FiO2 Mean Ox Delivery Rate 01/23 1005 Room Air 01/23 0810 98 Room Air 01/23 0800 Room Air 01/23 0720 98.0 81 18 141/81 93 Room Air 01/23 0253 100 Room Air 01/22 2125 98.0 87 20 158/87 100 Room Air 01/22 2027 97.5 88 18 138/89 99 Room Air Room Air 01/22 1823 97.8 88 18 129/83 100 Room Air 01/22 1456 97.1 79 18 139/82 100 Room Air Intake & Output 01/23 1600 01/23 0800 05/06 0000 Intake Total 900 480 480 Output Total 500 Balance 900 480 -20 Intake, Oral 900 480 480 Output, Urine 500 Patient 170 lb 170 lb Weight Weight Reported by Patient Measurement Method Young -Niuean female in no acute distress. Higher cortical function was intact. Speech was fluent. The head was normocephalic and atraumatic. Pupils were equal and reactive. Extraocular movements were full. There was no nystagmus. Facial strength and sensation was intact. Hearing was normal. Tongue was midline. The motor examination showed no drift of the upper extremities. There was no upper extremity weakness. Simulation of the lower extremities showed normal tone and bulk throughout. She had apparent weakness of the lower extremities bilaterally, however effort was at times inconsistent and there was "give way weakness' in dorsiflexion of the left foot. Soto's sign positive. Deep tendon reflexes were 2+ in the upper extremities and at the knees. Achilles reflexes were trace bilaterally. There was no ankle clonus. Plantar responses were flexor. Sensory examination was normal to light touch, joint position, distal pinprick and vibratory sensation. The patient was unable to walk unassisted. CSF was benign. Assessment/Plan Assessment: Young -Niuean female with recurrent weakness of the lower extremities. There are no upper motor neuron abnormalities at this time which would suggest a central nervous system process. Her diminished Achilles reflexes may suggest polyneuropathy however there are many inconsistencies on her examination with normal sensory findings and inconsistent effort upon motor testing. Differential diagnosis would include relapsing polyneuropathy versus conversion. I would consider a demyelinating disorder to be very unlikely. Recommendations: The patient has appropriately been given compression devices for her lower extremities. All efforts should be made to obtain her records from [facility] and even [facility], if available. I would pursue MRI of the brain, thoracic and lumbar spine with and without contrast. EMG and nerve conduction study would also be appropriate as her current examination does not demonstrate any upper motor neuron abnormalities. Physical therapy should be asked to assist. We will follow with the medical team. Consult Acknowledgment - Thank you for your consult request.
--- NOTE | 2017-01-23 15:22 | NUR ---
NURSING NOTE: THIS RN AND ONCOMING RN WENT INTO PATIENTS ROOM FOR BEDSIDE REPORT, PATIENT STATED SHE FELT LIKE SHE WAS HAVING A PANIC ATTACK. PATIENT STATED SHE FELT HOT AND NAUSEAS. MINUTES LATER, THE PATIENT BEGAN VOMITING LIQUID LUNCH. COUNTER SUPPLY WORKER 299 NOTIFIED. NEW ORDER FOR IV ZOFRAN TO BE GIVEN NOW. NEW ORDER FOR XANAX TO BE GIVEN ONCE NAUSEA SUBSIDES. ONCOMING RN AWARE OF ALL NEW ORDERS.
[2017-01-23 15:29] VITALS: BP 122/60
--- NOTE | 2017-01-23 16:36 | NUR ---
NURSING NOTE; LATE ENTRY; AT CHANGE OF SHIFT, THIS RN AND PREVIOUS RN WERE WALKING INTO PT ROOM, PT C/O NAUSEA AND STATED SHE WAS HABING AN ANXIETY ATTACK, PREVIOUS RN PAGED INSTRUMENT CHECKER, MICHELE AND XANAX ORDERED AND GIVEN, WILL CONTINUE TO MONITOR
--- NOTE | 2017-01-23 20:28 | Event Note ---
Event Note Event Note: Around 2:[address] Watts who recomended MRI head/thoracic and lumbar to r/o subacute vs chronic demylinating disorder. When attempting to co ordinate the MRI was told that no MRI was available after 2pm and only will be available on Wednesday. Confirmed with Dr. Watts that MRI can be postponed to Wednesday. Attending aware.
[2017-01-23 22:58] VITALS: BP 126/84
[2017-01-24 06:53] VITALS: BP 133/50
--- NOTE | 2017-01-24 11:45 | PN- Att Addend ---
Attending Addendum Attending Brief Note Patient seen and examined. Lying in bed. Not in any acute distress. Continues to report inability to move her lower extremities. Continues to request Percocet for control of lower extremity pain. Vital Signs Date Time Temp Pulse Resp B/P B/P Pulse O2 O2 Flow FiO2 Mean Ox Delivery Rate 01/24 1014 98 Room Air Room Air 01/24 0653 98.3 87 18 133/50 97 Room Air 01/23 2258 98.8 88 18 126/84 97 Room Air 01/23 1946 98 Room Air 01/23 1600 Room Air 01/23 1529 98.3 87 18 122/60 96 Gen. appearance: Well-developed, not in acute distress Heart: S1-S2 regular. Lungs: Clear to auscultation bilaterally Abdomen: Soft, nontender with normal bowel sounds Extremities: Power is 5 over 5 bilateral upper extremities. I found the patient with her left knee flexed when I entered the room. When asked to sit up for examination she was able to extend the knee. However when asked she reports inability to move either lower extremity. Laboratory Tests 01/24/17 0655: Anion Gap 12, Estimated GFR > 60, BUN/Creatinine Ratio 17.5 Problems 1. Lower extremity weakness. Recommendations: -Patient is unable to be discharged today as she continues to report inability to ambulate. -Changed to inpatient level of care. -Continue physical therapy as tolerated. -Scheduled to undergo MRI of the head thoracic and lumbar spine tomorrow as recommended by the neuro service. -Awaiting imaging and other records from her other hospitalizations.
[2017-01-24 14:04] VITALS: BP 122/70
[2017-01-24 22:39] VITALS: BP 130/88
[2017-01-25 06:39] VITALS: BP 114/80
[2017-01-25 07:59] LABS: ABSOLUTE BASOPHIL COUNT 0 /CUMM (0.0-0.2); ABSOLUTE EOSINOPHIL COUNT 0.2 /CUMM (0.0-0.7); ABSOLUTE GRANULOCYTE CT 3.7 /CUMM (1.4-6.5); ABSOLUTE LYMPH COUNT 2.9 /CUMM (1.2-3.4); ABSOLUTE MONOCYTE COUNT 0.4 /CUMM (0.10-0.60); BASOPHIL % 0.5 % (0.0-2.0); EOSINOPHIL % 2.5 % (0-5); HEMATOCRIT 36.1 % (37-47); MEAN CORPUSCULAR HGB 28.8 PG (27.0-31.0); MEAN CORPUSCULAR HGB CONC 33.5 G/DL (33.0-37.0); MEAN PLATELET VOLUME 8.6 FL (7.4-10.4); PLATELET COUNT 289 /CUMM (130-400); RBC DISTRIBUTION WIDTH 12.6 % (11.5-14.5); WHITE BLOOD CELL COUNT 7.2 /CUMM (4.8-10.8)
--- NOTE | 2017-01-25 08:21 | PN- Housestaff ---
CARMEN GAMEZ,BIPIN 01/25/17 0820: Subjective Follow-up For: Ascending paresthesias Subjective: Saw pt at bedside. She stated that the pins and needles sensation persisted in her bilat LE. No acute overnight events.Going for MRI today Review of Systems Constitutional: Denies: chills, malaise, weakness. EENTM: Denies: blurred vision, visual changes. Cardiovascular: Reports: no symptoms. Respiratory: Reports: no symptoms. Gastrointestinal: Reports: no symptoms. Genitourinary: Reports: no symptoms. Musculoskeletal: Reports: joint pain, muscle pain, muscle stiffness. Denies: back pain. Skin: Reports: no symptoms. Objective Last 24 Hrs of Vital Signs/I&O Vital Signs Date Time Temp Pulse Resp B/P B/P Pulse O2 O2 Flow FiO2 Mean Ox Delivery Rate 01/25 0639 98.7 94 18 114/80 98 Room Air 01/24 2239 99.1 80 19 130/88 94 Room Air 01/24 1931 99 Room Air 01/24 1404 98.7 66 20 122/70 98 Intake & Output 01/25 1600 01/25 0800 05 0000 Intake Total 220 1000 Output Total 400 500 Balance -180 500 Intake, Oral 220 1000 Output, Urine 400 500 Physical Exam General Appearance: Alert, Oriented X3, Cooperative, No Acute Distress Skin: No Significant Lesion HEENT: Atraumatic, PERRLA, EOMI, Mucous Membr. moist/pink Neck: Supple Cardiovascular: Regular Rate, Normal S1, Normal S2, No Murmurs Lungs: Normal Air Movement Abdomen: Soft, No Tenderness Neurological: Normal Speech, Strength decreased in Bilat LE. LLE worse than RLE. sensation equal Assessment/Plan Assessment: This is a 21-year-old female past medical history significant for nephrectomy, UTI, migraine, and for vague history of ascending paralysis and weakness. She comes in for similar chief complaint including severe pain and weakness/ neuropathy in her left lower extremity more than her right lower extremity. Notably, she has been worked up completely at [facility] in [place]. Per patient workup has been largely negative. This time , etiology of this weakness is unclear and differential includes neuropathy versus conversion disorder. Plan: Questionable ascending paralysis: The patient presents with bilateral lower extremity pain, weakness, and a sensation of "pins and needles," hysterectomy [facility] with a negative. Her CSF showed no evidence of infection or inflammation. MRI of brain and spine negative for any central nervous system demyelination disease. CK low. * We will keep neuro checks every 4 hours * Thank you for neuro eval * We will request medical records from [facility]. * We'll request PT and OT evaluation today * Follow-up B12 and folate * start her on gabapentin 100 mg every 8 hours * Follow-up MRI results * Per neurology EMG will be required. However, I spoke with the EMG department and they stated that Dr. Muhammad was out of town and as such, EMG would not be possible tomorrow. * Start Prilosec 10 mg baclofen at night * Follow-up Lyme titer * Follow-up DONA * Follow-up ESR * Follow up ANCA Regular diet Pharmacological DVT prophylaxis Patient is full code Problem List: 1. Muscle weakness of lower extremity 2. Nausea & vomiting 3. Migraine Pain Ratin Pain Location: none Pain Goal: Remain pain free Pain Plan: none Tomorrow's Labs & Rationales: cbc bep DVT/Prophylaxis: mechanical, pharmacological QUITA KUNZ 01/25/17 1330: Attending MD Review Statement Attending Statement Attending MD Statement: examined this patient, discuss w/resident/PA/SPECIAL EFFECTS ARTIST, agreed w/resident/PA/SPECIAL EFFECTS ARTIST, discussed with family, reviewed EMR data (avail), discussed with nursing, discussed with case mgmt, reviewed images, amended to note Attending Assessment/Plan: Patient stable and follow neurology and MRI. Continue with neurochecks.
--- NOTE | 2017-01-25 09:48 | NUR ---
LATE ENTRY; PATIENT LEFT FLOOR FOR MRI AT 0930 VIA MRI STRETCHER ACCOMPANIED BY DISTRIBUTION; WILL CONT TO MONITOR PATIENTS RETURN BACK TO FLOOR
--- NOTE | 2017-01-25 12:20 | NUR ---
OCCUPATIONAL THERAPY NOTE: OT CONSULT RECEIVED AND CHART REVIEWED. ATTEMPTED TO SEE PT 2X IN AM. PT OFF UNIT FOR MRI. OT WILL F/U TOMORROW IF APPROPRIATE.
--- NOTE | 2017-01-25 12:21 | NUR ---
PHYSICAL THERAPY- CONSULT RECEIVED, CHART REVIEWED. PT OFF THE FLOOR FOR SIGNIFICANT PORTION OF THIS AM, AT MRI. WILL FOLLOW APPROPRIATE WHEN RESULTS OBTAINED.
--- NOTE | 2017-01-25 13:12 | MRI REPORT ---
EXAMINATION: MRI OF THE BRAIN AND TOTAL SPINE WITHOUT AND WITH CONTRAST CLINICAL INFORMATION: Lower extremity weakness. Ascending paralysis. Assess for demyelinating disease. COMPARISON: None TECHNIQUE: Multiplanar multisequence imaging of the brain, as well as the cervical, thoracic, and lumbar spine was performed prior to and following the uneventful administration of 16 mL OptiMARK. FINDINGS: Brain: There is no abnormally restricted diffusion. There is no susceptibility artifact on gradient recalled echo sequence to suggest acute or chronic blood products. There is minor T2 prolongation along the frontal horns of both lateral ventricles. Otherwise no convincing intraparenchymal signal abnormality accounting for artifact. There is no abnormal parenchymal, leptomeningeal, or pachymeningeal enhancement. Ventricles, sulci, and extra-axial CSF spaces are normal in caliber and configuration. The arterial and venous flow voids appear preserved. The cerebellar tonsils are normally positioned. Marrow signal is maintained. The paranasal sinuses, nasal cavity, and mastoid air cells are clear. Mild prominence of the adenoid pad is within normal limits for age. An incidental left parasagittal retention cyst within the adenoid pad. Cervical spine: Vertebral body height, signal, and sagittal alignment are maintained. Intervertebral disc height and hydration are maintained. No marrow edema. No intramedullary signal abnormality. No abnormal enhancement within the thoracic canal after gadolinium administration. The cervical flow-voids are maintained. There is prominence of the palatine tonsils narrowing the oropharyngeal airway, likely reactive. No focal thyroid lesions. There is a nonenhancing 3 mm structure in the posterior aspect of the pituitary, slightly bright on T1 and dark on T2, suggesting a proteinaceous pars intermedia cyst. There is no significant disc herniation, canal, or foraminal stenosis. Thoracic spine: There are 12 rib-bearing thoracic vertebral bodies. Vertebral body height, signal, and sagittal alignment are maintained. Intervertebral disc height and hydration are maintained. No marrow edema. No convincing intramedullary signal abnormality. No abnormal enhancement within the thoracic canal after gadolinium administration. No disc herniation, canal, or foraminal stenosis. The visualized aorta is normal in caliber. No adenopathy. No gross signal abnormalities within the visualized lungs. The imaged upper abdominal viscera appear unremarkable. Lumbar spine: There are 5 nonrib-bearing lumbar type vertebral bodies. Vertebral body height, signal, and sagittal alignment are maintained. Intervertebral disc height and hydration are maintained. No marrow edema. No spondylolysis. The aorta is normal in caliber. No adenopathy. The imaged SI joints appear unremarkable. The conus terminates normally at L1. There is normal signal within the conus medullaris, cauda equina, and along the expected course of the filum terminale. The nerve roots of the cauda equina are normally positioned within the thecal sac and normal in caliber. No abnormal enhancement within the lumbar canal after gadolinium administration. There is no lumbar disc herniation, canal, or foraminal stenosis. IMPRESSION: 1. Unremarkable MRI imaging of the brain as well as total spine without and with contrast. 2. No evidence of demyelinating disease. No etiology for ascending paralysis is visualized.
--- NOTE | 2017-01-25 13:55 | PN- Neurology ---
Subjective Subjective: 22 -year-old woman with a vague history of possible ascending paralysis, currently presented to the hospital with bilateral leg pain, tingling in the soles of her feet and cramps and pain in her calves. Was concerned that this was the beginning of another ascending paralysis however to date all of the testing has been completely negative including a very low protein in the CSF, negative for pleocytosis in the CSF, and a pristine MRI of the central nervous system axis. CKs were also low. She notes that this pain disturbs her walking but it is not clear if she has true weakness. Review of Systems: No change Objective Vital Signs and I&Os Vital Signs Date Time Temp Pulse Resp B/P B/P Pulse O2 O2 Flow FiO2 Mean Ox Delivery Rate 01/25 1341 100 Room Air Room Air 01/25 0639 98.7 94 18 114/80 98 Room Air 01/24 2239 99.1 80 19 130/88 94 Room Air 01/24 1931 99 Room Air 01/24 1404 98.7 66 20 122/70 98 Intake & Output 01/25 1600 01/25 0800 01/25 0000 01/24 1600 01/24 0800 01/24 0000 Intake Total 220 1000 900 240 800 Output Total 400 500 450 Balance -180 500 900 240 350 Intake, Oral 220 1000 900 240 800 Number 1 Bowel Movements Output, Urine 400 500 450 Physical Exam: General: The patient is in no distress. Pleasant and cooperative. MSE: Alert and oriented 3. Good attention and concentration. Good short-term memory and fund of knowledge reflected through our conversation. Language is fluent with good comprehension and repetition. Cardiovascular: S1 and S2 are normal, regular rate and rhythm, and normal pedal pulses. Vision: Visual ortega are intact. Neurological: Extra ocular movements intact, JEROME, face is symmetric, tongue midline, uvula raises equally in the midline, V1-V3 sensation to touch is intact and equal bilaterallty, sternocleidomastoid and trapezius are strong on both sides, muscles of mastication are strong. No dysarthria noted. Motor exam reveals no abnormality of strength. Power is minus 5-5 throughout the distribution distally and proximally. Sensory exam did not reveal any deficits to touch, temperature, vibration and proprioception. Reflexes are symmetric hyporeflexive bilaterally. Cerebellar exam does not reveal any dysmetria. Rapid alternating movements are intact bilaterally. Current Medications: Current Medications Sig/Suzan Start time Last Medication Dose Route Stop Time Status Admin Acetaminophen 650 MG Q6P PRN 01/22 2145 AC PO Enoxaparin Sodium 40 MG DAILY 01/23 1000 AC 01/24 SC 0958 Gabapentin 100 MG Q8 01/23 0058 AC 01/25 PO 1341 Ibuprofen 600 MG Q6P PRN 01/22 2145 AC PO Ondansetron HCl 4 MG .STK-MED ONE 01/24 1918 DC IM 01/24 1919 Ondansetron HCl 4 MG ONCE ONE 01/24 1915 DC 01/24 PO 01/25 1916 192 Oxycodone/ 2 TAB Q6P PRN 01/22 2145 AC 01/25 Acetaminophen PO 1339 Results Last 24 Hours of Lab Results: Laboratory Tests 01/26 640 Chemistry Sodium (137 - 145 mmol/L) 136 L Potassium (3.5 - 5.1 mmol/L) 4.3 Chloride (98 - 107 mmol/L) 104 Carbon Dioxide (22 - 30 mmol/L) 22 Anion Gap (5 - 16) 10 BUN (7 - 17 mg/dL) 9 Creatinine (0.5 - 1.0 mg/dL) 0.8 Estimated GFR (>60 ml/min) > 60 BUN/Creatinine Ratio (7 - 25 %) 11.3 TSH (0.270 - 4.200 uIU/mL) 1.430 Hematology CBC w Diff NO MAN DIFF REQ WBC (4.8 - 10.8 /CUMM) 7.2 RBC (4.20 - 5.40 /CUMM) 4.20 Hgb (12.0 - 16.0 G/DL) 12.1 Hct (37 - 47 %) 36.1 L MCV (81.0 - 99.0 FL) 86.0 MCH (27.0 - 31.0 PG) 28.8 RDW (11.5 - 14.5 %) 12.6 Plt Count (130 - 400 /CUMM) 289 MPV (7.4 - 10.4 FL) 8.6 Gran % (42.2 - 75.2 %) 51.0 Lymphocytes % (20.5 - 51.1 %) 40.3 Monocytes % (1.7 - 9.3 %) 5.7 Eosinophils % (0 - 5 %) 2.5 Basophils % (0.0 - 2.0 %) 0.5 Absolute Granulocytes (1.4 - 6.5 /CUMM) 3.7 Absolute Lymphocytes (1.2 - 3.4 /CUMM) 2.9 Absolute Monocytes (0.10 - 0.60 /CUMM) 0.4 Absolute Eosinophils (0.0 - 0.7 /CUMM) 0.2 Absolute Basophils (0.0 - 0.2 /CUMM) 0 PUBS MCHC (33.0 - 37.0 G/DL) 33.5 ESR Westergren (0 - 20 MM) 18 Recent Imaging Studies: MRI brain and full spine with and without contrast are normal. Assessment/Plan Assessment: 22-year-old woman presenting with complaints of lower leg weakness and pain. An extensive workup reveals nothing. At most she either has neurogenic claudication with radiculopathy or a form of neuropathy. There is no suggestion of anything ominous going on. Plan: Recommend an EMG tomorrow. Do a trial 10 mg baclofen at night for her muscle cramps. Consider sending Lyme, DONA, ESR, and ANCA. Otherwise neurology signing off.
[2017-01-25 14:22] VITALS: BP 147/99
[2017-01-25 23:16] VITALS: BP 130/90
--- NOTE | 2017-01-26 04:14 | PN- Housestaff ---
JUAN APONTE 01/26/17 0414: Subjective Follow-up For: Left lower extremity weakness- idiopathic Complaints: pain scale (0-10) Subjective: Patient was seen and examined this morning. She is alert awake and oriented to time place and person. No acute events happened overnight. She stated that the pins and needles sensation persisted in her bilat LE. First no other complaints. Vitals stable Review of Systems Constitutional: Reports: see HPI. Objective Last 24 Hrs of Vital Signs/I&O Vital Signs Date Time Temp Pulse Resp B/P B/P Pulse O2 O2 Flow FiO2 Mean Ox Delivery Rate 01/26 0642 97.8 88 20 135/95 95 Room Air 01/25 2316 98.1 82 18 130/90 96 Room Air 01/25 1925 99 Room Air 01/25 1422 98.1 92 18 147/99 98 Room Air 01/25 1341 100 Room Air Room Air Intake & Output 01/26 1600 01/26 0800 01/26 0000 Intake Total 120 120 Output Total 500 400 Balance -380 -280 Intake, Oral 120 120 Output, Urine 500 400 Physical Exam General Appearance: Alert, Oriented X3, Cooperative, No Acute Distress Skin: No Rashes, No Breakdown HEENT: Atraumatic, PERRLA, EOMI, Mucous Membr. moist/pink Neck: Supple, No JVD Lymphatic: Cervical nl Cardiovascular: Normal S1, Normal S2 Lungs: Normal Air Movement Abdomen: Normal Bowel Sounds, Soft, No Tenderness Neurological: Strength at 5/5 X4 Ext, Normal Tone, Cranial Nerves 3-12 NL, Reflexes 2+ Current Medications: Current Medications Sig/Suzan Start time Last Medication Dose Route Stop Time Status Admin Acetaminophen 650 MG Q6P PRN 01/22 2145 AC PO Baclofen 10 MG AT BEDTIME 01/25 2200 AC / PO 2205 Enoxaparin Sodium 40 MG DAILY 01/23 1000 AC 01/25 SC 1526 Gabapentin 100 MG Q8 01/23 0058 AC 01/26 PO 0543 Ibuprofen 600 MG Q6P PRN 01/22 2145 AC PO Ondansetron HCl 4 MG ONCE ONE 01/25 1545 DC 01/25 PO 01/25 1546 1533 Oxycodone/ 2 TAB Q6P PRN 01/22 2145 AC 01/26 Acetaminophen PO 0549 Patient Medication 1 ED .STK-MED ONE 01/25 1408 DC Teaching ED 01/25 1409 Last 24 Hrs of Lab/Silvano Results Last 24 Hrs of Labs/Mics: Laboratory Tests 01/26/17 0635: Anion Gap 10, Estimated GFR > 60, BUN/Creatinine Ratio 14.3, CBC w Diff Pending, WBC Pending, RBC Pending, Hgb Pending, Hct Pending, MCV Pending, MCH Pending, RDW Pending, Plt Count Pending, MPV Pending, Gran % Pending, Lymphocytes % Pending, Monocytes % Pending, Eosinophils % Pending, Basophils % Pending, Absolute Granulocytes Pending, Absolute Lymphocytes Pending, Absolute Monocytes Pending, Absolute Eosinophils Pending, Absolute Basophils Pending, PUBS MCHC Pending, ESR Westergren Pending Assessment/Plan Assessment: This is a 21-year-old female past medical history significant for oopherectomy, asthma, migraine, and for vague history of ascending paralysis and weakness. She comes in for similar chief complaint including severe pain and weakness/ neuropathy in her left lower extremity more than her right lower extremity. Notably, she has been worked up completely at [facility] and some [facility] in [place]. Per patient workup has been largely negative. This time , etiology of this weakness is unclear and differential includes neuropathy versus conversion disorder. Plan: Questionable ascending paralysis: The patient presents with bilateral lower extremity pain more on left leg compared to right, weakness, and a sensation of "pins and needles," with a negative wokup in the past for similar complaints. Her CSF showed no evidence of infection or inflammation. MRI of brain and spine negative for any central nervous system demyelination disease. * We will keep neuro checks every 4 hours * Thank you for neuro eval * We will request medical records from [facility]. * PT and OT evaluation * Follow-up B12 and folate * started her on gabapentin 100 mg every 8 hours * Per neurology EMG today * Will follow-up EMG results * Started 10 mg baclofen at night time. * Follow-up Lyme titer * Follow-up DONA * Follow-up ESR * Follow up ANCA Regular diet Pharmacological DVT prophylaxis Patient is full code Problem List: 1. Muscle weakness of lower extremity Pain Ratin Pain Location: left lower extrmity Pain Goal: Remain pain free Pain Plan: tylinol Tomorrow's Labs & Rationales: none JOAQUINAQUITA 01/26/17 1142: Attending MD Review Statement Attending Statement Attending MD Statement: examined this patient, discuss w/resident/PA/FIELD ENGINEER, agreed w/resident/PA/FIELD ENGINEER, discussed with family, reviewed EMR data (avail), discussed with nursing, discussed with case mgmt, reviewed images, amended to note Attending Assessment/Plan: Patient stable and neurology signed off and MRI neagtive. stephon cosnult and follow
[2017-01-26 06:42] VITALS: BP 135/95
--- NOTE | 2017-01-26 06:53 | NUR ---
LATE ENTRY PT REQUESTED NUVARING, STATING HERS NEEDS TO CHANGED. NURSING SLATE WORKER IN TO TALK TO PATIENT. WILL PASS ON TO DAY TEAM.
[2017-01-26 08:15] LABS: ABSOLUTE BASOPHIL COUNT 0 /CUMM (0.0-0.2); ABSOLUTE EOSINOPHIL COUNT 0.2 /CUMM (0.0-0.7); ABSOLUTE GRANULOCYTE CT 2.9 /CUMM (1.4-6.5); ABSOLUTE LYMPH COUNT 3.7 /CUMM (1.2-3.4); ABSOLUTE MONOCYTE COUNT 0.4 /CUMM (0.10-0.60); BASOPHIL % 0.5 % (0.0-2.0); EOSINOPHIL % 3.4 % (0-5); GRANULOCYTE % 40.5 % (42.2-75.2); HEMATOCRIT 36.9 % (37-47); MEAN CORPUSCULAR HGB 29.1 PG (27.0-31.0); MEAN CORPUSCULAR HGB CONC 33.8 G/DL (33.0-37.0); MEAN CORPUSCULAR VOLUME 86.2 FL (81.0-99.0); MEAN PLATELET VOLUME 8.8 FL (7.4-10.4); PLATELET COUNT 293 /CUMM (130-400); RBC DISTRIBUTION WIDTH 12.5 % (11.5-14.5); RED BLOOD CELL CT 4.29 /CUMM (4.20-5.40); WHITE BLOOD CELL COUNT 7.3 /CUMM (4.8-10.8)
[2017-01-26] MEDS ORDERED: BACLOFEN10 M1 PO (09:01)
[2017-01-26] MEDS ORDERED: GABAPENTIN100 M2 PO (09:01)
--- NOTE | 2017-01-26 14:13 | Discharge Summary ---
See Addendum Visit Information Visit Dates Admission Date: 01/24/17 Discharge Date: 01/27/17 Hospital Course Course Attending Physician: PORTIA WESLEY MD Primary Care Physician: Kait PCP Hospital Course: Patient comes in ER for bilateral lower extremity pain and weakness. symptoms were more on left than right. Pain started 1 day prior, it was so severe that she could not ambulate and was dragging her left foot, pain in pins and needles type and charley horse. Radiating up to thigh. Patient gets this symptoms intermittently and resolved on their own but last May patient was admitted in the hospital for similar symptoms, it was followed by progressive weakness bilateral lower extremity and upper extremity, severe pain all over the body. As patient could not walk she was discharged to rehabilitation, regained her strength after 1 month according to her. She WAS not aware of any particular diagnosis. Vitals unremarkable On exam : A O 3, cooperative, no acute distress, neck supple, JVD normal, no lymphadenopathy, mucosa moist, no dependent edema, no obvious skin rashes or inflammation CVS: S1-S2, RRR. RS: Clear to auscultate bilaterally. Abdomen: Soft , NT, ND, bowel sounds present. Bilateral upper extremity strength and reflexes normal, facial nerves intact, patient does not move left lower extremity, mild touch she says it is painful, 3 over 5 strength in left lower extremity, 4 over 5 strength in right lower extremity, reflexes normal. Labs: CBC, BMP, unremarkable, AST 41, CK 124, CRP 4.5 UA positive for leukocyte esterase, moderate hemoglobin, 1-3 RBC Lumbar puncture: WBC 2, RBC 0, glucose 46, protein 25 Left lower extremity venous Doppler: No evidence of DVT Hospital Course: 1.B/L leg weakness Left leg weakness> right leg 2.malingering disorder 3.Idiopathic neuropathy The patient was treated and extensive neurological invetstigation was performed This included 1.LP--> negative for meningtis and GBS 2.MRI of Spine and MRI of brain--> negative for demyelinating disease 3.Endocrinal disorder-->Normal TSH,CK,B12 levels 4. 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 We started her on Gabapentin and Baclofen She was evlauted by the psych services and we think patient has malingering syndriome and we started her on SSRI(cymbalta). Cymbalta 30mg daily for anxiety symptoms if patient agrees to f/u with psych or PCP for medication management. This medication should be increased to 60mg after 7 days(02/02/2017) Complications: none Allergies: Coded Allergies: NO KNOWN ALLERGIES (07/12/16) Significant Procedures: none Pertinent Lab Results: venous doppler IMPRESSION: Normal triplex scan without evidence of deep venous thrombosis involving the lower extremity. Head and spine MRi IMPRESSION: 1. Unremarkable MRI imaging of the brain as well as total spine without and with contrast. 2. No evidence of demyelinating disease. No etiology for ascending paralysis is visualized. Disposition Summary Disposition Principal Diagnosis: B/L IDIOPATHIC NEUROPATHY Malingering Disorder Additional Diagnosis: malingering disorder Discharge Disposition: SNF Discharge Instructions General Discharge Information Code Status: Full Code Patient's Diet: as tolerated Patient's Activity: as tolerated Follow-Up Instructions/Appts: set an appointment with pcp in 1 week of discharge Medications at Discharge Discharge Medications: Continue taking these medications: Etonogestrel/Ethinyl Estradiol (Nuvaring Vaginal Ring) 0.12 MG -0.015 MG/24 HR VAG.RING 1 Each VAGINAL ONCE A MONTH Qty = 3 Instructions: use for 3 weeks, skip for 1 week Comments: PER PT NOT GIVEN IN HOSPITAL Start taking the following new medications: Baclofen (Baclofen) 10 MG TABLET 10 Milligram ORAL AT BEDTIME Qty = 30 No Refills Comments: Last Taken: 01/26/17 Time: 9:20 PM Gabapentin (Gabapentin) 100 MG CAPSULE 100 Milligram ORAL EVERY 8 HOURS Qty = 30 No Refills Comments: Last Taken: 01/27/17 Time: 2 PM Duloxetine Hydrochloride (Cymbalta) 30 MG CAPSULE.DR 30 Milligram ORAL DAILY Qty = 30 No Refills Instructions: please take cymbalta 2 pills (60mg) from 02/02/2017 if tolerates and follow up with PCP AND PSYCHIATRY Comments: Last Taken: 01/27/17 Time:10:30 AM Ondansetron HCl (Zofran) 4 MG TABLET 1 Tablet ORAL Every 6-8 Hours as Needed as needed for nausea Qty = 10 No Refills Comments: Last Taken: 01/27/17 Time: 2:45 PM Copies To: MADAN WIGGINS MD
[2017-01-26 14:20] VITALS: BP 135/82
--- NOTE | 2017-01-26 14:32 | NUR ---
PATIENT AMBULATED WITH RW AND MINIMAL ASSIST FROM BED IN LAYING POSITION TO BATHROOM; PATIENT VOIDED AND AMBULATED FROM BATHROOM TO BED WITH MIN ASSIST AND RW; PATIENT STATES "I AM FINALLY MOVING!"; PER PATIENT PAIN TO BLE 8/10 (SEE EMAR FOR MEDS GIVEN); FALL RISK BRACELET AND SOCKS PLACED ON PATIENT; PATIENT REFUSING BED/CHAIR ALARM (DR RANDOLPH AND DR AMBROSE AWARE); WILL CONTINUE TO MONITOR PATIENT;
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
--- NOTE | 2017-01-26 20:42 | Patient Discharge Instructions ---
Discharge Instructions General Discharge Information You were seen/treated for: anxiety and leg weakness Special Instructions: 1. please f.u with new pcp in 2 weeks 2. PLease See inon license of [facility] psych services 3. ConTINUE Cymbalta 30mg daily for anxiety symptoms and f/u with psych or PCP for medication management. This medication should be increased to 60mg FROM 4. please schedule follow-up appointment with [facility] by calling [phone] to schedule intake appointment. 5. PLEASE FOLLOW NEUROLOGIST IN ONE WEEK. REFERRAL WAS PROVIDED. 6. DONT DRIVE AFTER TAKING GABAPENTIN, BACLOFEN AND CYMBALTA Diet Continue normal diet: Yes Activity Full Activity/No Limits: Yes Acute Coronary Syndrome Inclusion Criteria At DC or during hospital stay patient has or had the following: ACS DIAGNOSIS No Discharge Core Measures Meds if any: Prescribed or Continued at Discharge Meds if any: NOT Prescribed or Continued at Discharge Congestive Heart Failure Inclusion Criteria At DC or during hospital stay patient has or had the following: CHF DIAGNOSIS No Discharge Core Measures Meds if any: Prescribed or Continued at Discharge Meds if any: NOT Prescribed or Continued at Discharge Cerebrovascular accident Inclusion Criteria At DC or during hospital stay patient has or had the following: CVA/TIA Diagnosis No Discharge Core Measures Meds if any: Prescribed or Continued at Discharge Meds if any: NOT Prescribed or Continued at Discharge Venous thromboembolism Inclusion Criteria VTE Diagnosis No VTE Type NONE VTE Confirmed by (Test) NONE Discharge Core Measures - Per Current guidelines, there needs to be overlap - treatment for the first 5 days of Warfarin therapy. - If discharged on Warfarin prior to 5 days of - overlap therapy, the patient will need to be - assessed for post discharge needs including - *Post discharge parental anticoagulation - *Warfarin and/or parental anticoagulation education - *Follow up date to check INR post discharge At least 5 days overlap therapy as Inpatient No Meds if any: Prescribed or Continued at Discharge Note: Overlap Therapy is Warfarin and Anticoagulant Meds if any: NOT Prescribed or Continued at Discharge
[2017-01-26 22:40] VITALS: BP 146/88
--- NOTE | 2017-01-27 00:22 | NUR ---
LATE ENTRY: PT VOMITED X 1. MD PEARSON MADE AWARE, IV ZOFRAN GIVEN. WILL CONTINUE TO MONITOR.
[2017-01-27 06:56] VITALS: BP 120/90
--- NOTE | 2017-01-27 07:32 | PN- Housestaff ---
JUAN APONTE 01/27/17 0731: Subjective Follow-up For: Idiopathic neuropathy Bilateral lower extremity weakness Complaints: pain scale (0-10) Subjective: Patient was seen and examined this morning. She is alert awake and oriented to time place and person. No acute events noticed overnight. She does complain left lower extremity weakness. She doesn't feel good to go home. She is preferring to go to acute rehabilitation center. We spoke with bilingual patient support caseworker regarding the placement. Waiting to hear back from the bilingual patient support caseworker regarding placement. Vitals were stable. She is on room air. Able to ambulate with the help of walker. Review of Systems Constitutional: Reports: see HPI. Objective Last 24 Hrs of Vital Signs/I&O Vital Signs Date Time Temp Pulse Resp B/P B/P Pulse O2 O2 Flow FiO2 Mean Ox Delivery Rate 01/27 1050 Room Air 01/27 0952 Room Air Room Air 01/27 0656 98.7 90 18 120/90 97 Room Air 01/26 2240 97.8 84 20 146/88 96 Room Air 01/26 1420 98.0 73 18 135/82 95 Room Air Intake & Output 01/27 1600 01/27 0800 01/27 0000 Intake Total 100 120 Output Total 300 Balance 100 -180 Intake, IV 0 Intake, Oral 100 120 Number 0 Bowel Movements Output, Urine 300 Patient 77.111 kg Weight Physical Exam General Appearance: Alert, Oriented X3, Cooperative, No Acute Distress Skin: No Rashes, No Breakdown HEENT: Atraumatic, PERRLA, EOMI, Mucous Membr. moist/pink Neck: Supple, No JVD Lymphatic: Cervical nl Cardiovascular: Normal S1, Normal S2 Lungs: Normal Air Movement Abdomen: Normal Bowel Sounds, Soft, No Tenderness Neurological: Strength at 5/5 X4 Ext, Cranial Nerves 3-12 NL, Reflexes 2+ Extremities: No Clubbing, No Cyanosis, No Edema Vascular: Pulses Symmetrical Current Medications: Current Medications Sig/Suzan Start time Last Medication Dose Route Stop Time Status Admin Acetaminophen 650 MG Q6P PRN 01/22 2145 AC PO Baclofen 10 MG AT BEDTIME 01/25 2200 AC 01/26 PO 2121 Duloxetine HCl 30 MG DAILY 01/26 1332 AC 01/27 PO 1031 Enoxaparin Sodium 40 MG DAILY 01/23 1000 AC 01/27 SC 1031 Gabapentin 100 MG Q8 01/23 0058 AC 01/27 PO 0643 Ibuprofen 600 MG Q6P PRN 01/22 2145 AC PO Ondansetron HCl 4 MG ONCE ONE 01/26 1915 DC 01/26 PO 01/26 Oxycodone/ 2 TAB Q6P PRN 01/22 2145 AC 01/27 Acetaminophen PO 0645 Assessment/Plan Assessment: This is a 21-year-old female past medical history significant for oopherectomy, asthma, migraine, and for vague history of ascending paralysis and weakness. She comes in for similar chief complaint including severe pain and weakness/ neuropathy in her left lower extremity more than her right lower extremity. Notably, she has been worked up completely at [facility] and some [facility] [place]. Per patient workup has been largely negative. This time , etiology of this weakness is unclear and differential includes neuropathy versus conversion disorder. Plan: Questionable ascending paralysis: The patient presents with bilateral lower extremity pain more on left leg compared to right, weakness, and a sensation of "pins and needles," with a negative wokup in the past for similar complaints. Her CSF showed no evidence of infection or inflammation. MRI of brain and spine negative for any central nervous system demyelination disease. * We will keep neuro checks every 4 hours * Thank you for neuro eval * We will request medical records from [facility]. * PT and OT evaluation -recommended acute rehabilitation * B12 and folate-normal * started her on gabapentin 100 mg every 8 hours * Started 10 mg baclofen at night time. * Follow-up Lyme titer-negative * Follow-up DONA-negative * Follow-up ESR-24 * Follow up ANCA-negative Psychiatric recommendations She was started on Cymbalta 30 mg daily as per psychiatric recommendations If patient tolerates Cymbalta will increase dose to 60 mg daily on 02/02/2017. follow-up appointment with [facility] by calling [phone] to schedule intake appointment. Regular diet Pharmacological DVT prophylaxis Patient is full code Problem List: 1. Muscle weakness of lower extremity Pain Ratin Pain Location: left lower extremity Pain Goal: Remain pain free Pain Plan: Percocet Tomorrow's Labs & Rationales: None QUITA KUNZ 01/27/17 1154: Attending MD Review Statement Attending Statement Attending MD Statement: examined this patient, discuss w/resident/PA/SCHOOL TRANSPORTATION SUPERVISOR, agreed w/resident/PA/SCHOOL TRANSPORTATION SUPERVISOR, discussed with family, reviewed EMR data (avail), discussed with nursing, discussed with case mgmt, reviewed images, amended to note Attending Assessment/Plan: Patient stable and neurology signed off and MRI neagtive. stephon cosnulted and followed recommendations. stable for d/c today.
--- NOTE | 2017-01-27 09:37 | PN- Psychiatry ---
Assessment/Plan Impression: Identifying Info: 22-year-old single -[place] Citizen female presents to [facility] emergency department on 01/22/2017 for leg weakness and admitted to medicine. SUBJECTIVE Patient states "I don't know... I think I just want to go back to bed. Denies any mood disturbance today does endorse fatigue. Reports she did not sleep well last night due to GI issues. Reports she would rather be in the hospital assisted. Report she will likely not return to work when she is discharged home, would like to return to school. Brief ROS Gait: Ambulated with PT Sleep: Impaired Appetite: Poor this morning OBJECTIVE Mental Status Exam Presentation/Appearance: Cooperative with evaluation. Hospital garb. Calm. Sitting in chair. Orientation: person, place, month not day Sensorium: Appears somnolent but is easily aroused Eye contact: Appropriate Affect: Somewhat blunted Mood: "Tired" Depression: Denies today Anxiety: Denies today, denies any panic sx since last interview Thought Content: - Denies SI/HI, AH/VH, PI. States and also believes they will not kill themselves. - Denies Hopeless/Helpless Thoughts Thought Process: Linear Associations: Appropriate Speech: Normal tone and rate Judgment: Fair Insight: Fair Cognition: Memory: Grossly intact Attention/Concentration: Grossly intact Fund of Knowledge: Adequate Abstractions: Did not assess MMSE: Did not assess ASSESSMENT 22-year-old single -[place] Citizen female presents with weakness and pain for the last 9 months as well as panic and potential trauma symptoms. Today presents is somnolent. She would likely benefit from continuing medication for anxiety and psychiatric treatment for her history of trauma. Differential diagnosis rule out Nonpsychiatric Medical Condition rule out Other Specified Trauma and Stressor-Related Disorder rule out Unspecified Anxiety Disorder rule out Panic Disorder rule out Somatic Symptom Disorder rule out Functional Neurologic Symptom Disorder rule out Unspecified Personality Disorder Suggestion: 1. Please include the following and W 10: - Have patient followed by psychiatry at rehabilitation. - If patient tolerates Cymbalta please increase dose to 60 mg daily on 2016. - Once patient's discharge date is known please schedule follow-up appointment with [facility] by calling [phone] to schedule intake appointment. 2. Continue psychotropics as currently ordered. 3. Thank you for including psychiatry in this case we'll continue to follow on an as-needed basis. Subjective Subjective: as above Objective Last 24 Hrs of Vital Signs/I&O Current Medications Sig/Suzan Start time Last Medication Dose Route Stop Time Status Admin Acetaminophen 650 MG Q6P PRN 01/22 2145 AC PO Baclofen 10 MG AT BEDTIME 01/25 2200 AC 01/26 PO 212 Duloxetine HCl 30 MG DAILY 01/26 1332 AC 01/26 PO 1444 Enoxaparin Sodium 40 MG DAILY 01/23 1000 AC 01/26 SC 0916 Gabapentin 100 MG Q8 01/23 0058 AC 01/27 PO 0643 Ibuprofen 600 MG Q6P PRN 01/22 2145 AC PO Ondansetron HCl 4 MG ONCE ONE 01/26 1915 DC 01/26 PO 01/26 Oxycodone/ 2 TAB Q6P PRN 01/22 2145 AC 01/27 Acetaminophen PO 45 Vital Signs Date Time Temp Pulse Resp B/P B/P Pulse O2 O2 Flow FiO2 Mean Ox Delivery Rate 01/27 0952 Room Air Room Air 01/27 0656 98.7 90 18 120/90 97 Room Air 01/26 2240 97.8 84 20 146/88 96 Room Air 01/26 1420 98.0 73 18 135/82 95 Room Air 01/26 1120 98 Room Air Intake & Output 01/27 1600 01/27 0800 01/27 0000 Intake Total 100 120 Output Total 300 Balance 100 -180 Intake, IV 0 Intake, Oral 100 120 Number 0 Bowel Movements Output, Urine 300
[2017-01-27] MEDS ORDERED: CYMBALTA30 M1 PO (11:40)
[2017-01-27 14:28] VITALS: BP 128/65
[2017-01-27] MEDS ORDERED: ZOFRAN4 M2 PO (16:05)
== END 2017-01-27 15:55 | disposition home health service (06) | DRG 48 ==
LOC: ERH 10:48 → ERHI 18:08 → EDBEDREQ 19:42 → ENRESERV 20:07 → 2NB 21:13
PROVIDERS: Internal Medicine; Physician Assistant; Student in an Organized Health Care Education/Training Program; ADMIT Internal Medicine
PROC: 009U3ZX Drainage of Spinal Canal, Percutaneous Approach, Diagnostic (ICD-10-PCS; principal; 2017-01-24)
DX: G60.9 Hereditary and idiopathic neuropathy, unspecified (principal); G83.9 Paralytic syndrome, unspecified; M62.81 Muscle weakness (generalized); J45.909 Unspecified asthma, uncomplicated; G43.909 Migraine, unspecified, not intractable, without status migrainosus; Z76.5 Malingerer [conscious simulation]; F17.200 Nicotine dependence, unspecified, uncomplicated
CPT/HCPCS: 2NBSP; 6040; 70552; 72142; 72147; 72149; 86618; 87070; 87205; 87798; 36415; 70553; 72156; 72157; 72158; 81001; 81025; 82436; 87086; 88305; 93005; 93010; 94150; 96372; 97110-GO; 97112-GO; 97116-GO; 97162-GP; 97165-GO; 97530-GO; 97530-GP; A9579; G0378; J1650; J2405; J3101

== ENCOUNTER 2017-12-14 09:25 | Emergency (ER) | payer OTHER ==
[~2017-12-14] VITALS: Ht 154.9 cm; Wt 81.6 kg
[~2017-12-14 09:25] MED LIST changes: +BACLOFEN10 M1 PO; +CYMBALTA30 M1 PO; +FLONASE ALLERG9.9 ML NAS; +GABAPENTIN100 M2 PO; +MEDROL4 M2 PO; +TESSALON PERLE100 M1 PO; +TRAMADOL HCL50 M1 PO; +VENTOLIN HFA18 GM INH
--- NOTE | 2017-12-14 11:01 | ED DYSPNEA/ASTHMA COMPLAINT ---
History of Present Illness General Chief Complaint: Wheezing/Asthma Stated Complaint: ASTHMAD Source: patient Exam Limitations: no limitations Vital Signs & Intake/Output Vital Signs & Intake/Output Vital Signs Date Time Temp Pulse Resp B/P B/P Pulse O2 O2 Flow FiO2 Mean Ox Delivery Rate 12/14 1114 100 12/14 0931 97.7 90 24 143/76 99 Room Air Room Air Allergies Coded Allergies: NO KNOWN ALLERGIES (07/12/16) Reconcile Medications Benzonatate (Tessalon Perle) 100 MG CAPSULE 1 CAP PO TID PRN COUGH Etonogestrel/Ethinyl Estradiol (Nuvaring Vaginal Ring) 0.12 MG -0.015 MG/24 HR VAG.RING 1 EACH VG Q30D CONTROL (Reported) use for 3 weeks, skip for 1 week Mometasone Furoate (Nasonex) 50 MCG SPRAY.PUMP 2 SPRAY NASB DAILY PRN CONGESTION Prednisone 10 MG TABLET 1 TAB PO DAILY BRONCHITIS 3 TABS PO X 3 DAYS, 2 TABS PO X 3 DAYS, 1 TAB PO X 3 DAYS START 12/15/17 Triage Note: PT TO ED WITH C/O CONGESTION, COUGH WHEN LAYING DOWN, HX ASTHMA "TAKING NEBULIZER, NOT WORKING". 99% ON ROOM AIR WHILE TALKING IN TRIAGE. DENIES FEVER. Triage Nurses Notes Reviewed? yes Onset: Gradual Duration: day(s): (2) Timing: recent history Severity: moderate Activities at Onset: none Prior Episodes/Possible Cause: occasional episodes Modifying Factors: Improves With: immobilization. Associated Symptoms: cough : No Patient currently breastfeeds: No HPI: Patient is a 22-year-old female presenting to the emergency department with chief complaint of upper respiratory congestion, sore throat, postnasal drip, lost her voice and dry cough + going on since yesterday. History of asthma. She's been using her nebulizer machine at home without relief. Denies sputum production. No fevers or chills. No chest pain or palpitations. Denies abdominal pain. Still eating and drinking without difficulty. Denies taking anything [id number] to help with her symptoms. Positive rhinorrhea. Past History Travel History Traveled to [place] past 21 day No Medical History Any Pertinent Medical History? 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 No Review of Systems Review of Systems Constitutional: Reports: no symptoms. Comments Review of systems: See HPI, All other systems negative. Constitutional, no chills fever or weight loss HEENT: No visual changes Cardiovascular: No chest pain ,palpitation Skin, no jaundice no rashes Respiratory: No hemoptysis GI: No nausea no vomiting : No dysuria No hematuria Muscle skeletal: no back pain, no neck pain, Neurologic: No numbness no confusion NO HEADACHES Psych: No stress anxiety or depression,. Heme/endocrine: No bruising no bleeding no polyuria or polydipsia Immunology: No splenectomy or history of AIDS Physical Exam Physical Exam General Appearance: well developed/nourished, no apparent distress, alert, awake , comfortable Respiratory: decreased breath sounds Comments: Well-developed well-nourished person in no acute distress HEENT: Pupils equally round and reactive to light and accommodation. Nose is atraumatic. External auditory canal and Tympanic membranes clear. Clear nasal discharge bilaterally. Hoarse voice. Pharynx is mildly erythematous, no tonsillar enlargement, uvula midline. No swelling or edema. Neck: Supple, no lymphadenopathy, normal range of motion without pain or tenderness Back: Nontender Cardiovascular: Regular rate and rhythms no murmurs rubs or gallops, normal JVP Respiratory: No respiratory distress.breath sounds diminished to auscultation bilaterally WITH SCANT WHEEZING THROUGHOUT. Extremity: No edema Neuro: Alert oriented x3 Skin: No appreciable rash on exposed skin, skin is warm and dry. Psych: Mood and affect is normal, memory and judgment is normal. Core Measures ACS in differential dx? No CVA/TIA Diagnosis No Sepsis Present: No Sepsis Focused Exam Completed? No Progress Differential Diagnosis: asthma, bronchitis, COPD, pneumonia, SINUSITIS, URI Plan of Care: Orders Procedure Date/time Status THROAT CULTURE W/QUICK STREP 12/14 1143 Active URINE 12/14 1143 Complete Laboratory Tests 12/14/17 1145: Urine Test NEGATIVE Diagnostic Imaging: Viewed by Me: Radiology Read. Discussed w/RAD: Radiology Read. Radiology Impression: PATIENT: MADYSON CONDE PRESENT AGE: 22 PATIENT ACCOUNT NO: [id number] : 96 LOCATION: [facility] ORDERING PHYSICIAN: Danni ASHLEY SERVICE DATE: 12/14/17 EXAM TYPE: RAD - XRY-CHEST XRAY, TWO VIEWS EXAMINATION: XR CHEST CLINICAL INFORMATION: Cough, congestion. COMPARISON: Chest done on 06/05/2014. TECHNIQUE: 2 views of the chest were obtained. FINDINGS: Technically limited due to motion-related artifacts. Grossly, there is no discrete focal airspace disease present. The cardiomediastinal silhouette is within normal limits. There is no pleural effusion present. IMPRESSION: Technically limited study due to motion-related artifacts. Grossly, there is no acute cardiopulmonary disease present. DICTATED BY: Soren Buckley MD DATE/TIME DICTATED:12/14/171234 MEAT SOAKER: MADELYN DATE/TIME TRANSCRIBED:12/14/171234 CONFIDENTIAL, DO NOT COPY WITHOUT APPROPRIATE AUTHORIZATION. <Electronically signed in Other Vendor System> Initial ED EKG: none Departure Departure Time of Disposition: 1250 Disposition: HOME OR SELF CARE Condition: Stable Clinical Impression Primary Impression: Bronchitis Secondary Impressions: Laryngitis Referrals: Unknown (PCP/Family) Additional Instructions: Follow-up with your primary care physician call to make an appointment to see them in the next 5-7 days. Take prednisone, continue using albuterol inhaler and nebulizer as previously directed. Take Tessalon Perles aS PRESCRIBED FOR cough. Take Nasonex as prescribed to help with congestion. Return for worsening symptoms or concerns. Departure Forms: Customer Survey General Discharge Information Prescriptions: Current Visit Scripts Mometasone Furoate (Nasonex) 2 SPRAY NASB DAILY PRN CONGESTION #1 INHAL Benzonatate (Tessalon Perle) 1 CAP PO TID PRN COUGH #30 CAP Prednisone 1 TAB PO DAILY #18 TAB 3 TABS PO X 3 DAYS, 2 TABS PO X 3 DAYS, 1 TAB PO X 3 DAYS START 12/15/17 Critical Care Note Critical Care Note Critical Care Time: non-applicable
[2017-12-14] MEDS ORDERED: PREDNISONE10 M2 PO (12:21)
[2017-12-14] MEDS ORDERED: TESSALON PERLE100 M1 PO (12:21)
[2017-12-14] MEDS ORDERED: NASONEX17 GM NASB (12:21)
--- NOTE | 2017-12-14 12:42 | RADIOLOGY REPORT ---
EXAMINATION: XR CHEST CLINICAL INFORMATION: Cough, congestion. COMPARISON: Chest done on 06/05/2014. TECHNIQUE: 2 views of the chest were obtained. FINDINGS: Technically limited due to motion-related artifacts. Grossly, there is no discrete focal airspace disease present. The cardiomediastinal silhouette is within normal limits. There is no pleural effusion present. IMPRESSION: Technically limited study due to motion-related artifacts. Grossly, there is no acute cardiopulmonary disease present.
[2017-12-14 13:04] VITALS: BP 134/72
[2017-12-15] MEDS ORDERED: CHERATUSSIN AC118 M1 PO (23:30)
== END 2017-12-14 13:04 ==
LOC: ERH 09:25
DX: J40 Bronchitis, not specified as acute or chronic (principal); J04.0 Acute laryngitis
CPT/HCPCS: 1263; 71046; 81025

== ENCOUNTER 2017-12-29 21:00 | Emergency (ER) | payer OTHER ==
[~2017-12-29 21:00] MED LIST changes: +CHERATUSSIN AC118 M1 PO; +NASONEX17 GM NASB; +PREDNISONE10 M2 PO
--- NOTE | 2017-12-29 22:09 | ED GENERAL ADULT ---
History of Present Illness General Chief Complaint: General Adult Stated Complaint: PT HAS ASTHMA AND VOMITING TWICE A DAY Source: patient Exam Limitations: no limitations Vital Signs & Intake/Output Vital Signs & Intake/Output Vital Signs Date Time Temp Pulse Resp B/P B/P Pulse O2 O2 Flow FiO2 Mean Ox Delivery Rate 12/29 2333 96.6 85 16 104/76 99 Room Air Room Air 12/29 2122 98.8 110 24 94/50 96 Room Air ED Intake and Output 12/30 0000 12/29 1200 Intake Total 1000 Output Total Balance 1000 Intake, IV 1000 Intake, Oral 0 Allergies Coded Allergies: NO KNOWN ALLERGIES (07/12/16) Reconcile Medications Benzonatate (Tessalon Perle) 100 MG CAPSULE 1 CAP PO TID PRN COUGH Codeine Phosphate/Guaifenesi (Cheratussin AC Syrup) 10 MG-100 MG/5 ML LIQUID 10 ML PO Q6H PRN COUGH Etonogestrel/Ethinyl Estradiol (Nuvaring Vaginal Ring) 0.12 MG -0.015 MG/24 HR VAG.RING 1 EACH VG Q30D CONTROL (Reported) use for 3 weeks, skip for 1 week Ibuprofen 800 MG TABLET 1 TAB PO TID PRN pain Mometasone Furoate (Nasonex) 50 MCG SPRAY.PUMP 2 SPRAY NASB DAILY PRN CONGESTION Ondansetron (Zofran Odt) 4 MG TAB.RAPDIS 1 TAB SL TID nausea/vomiting Pantoprazole Sodium (Protonix) 40 MG TABLET.DR 1 TAB PO DAILY stomach burning Prednisone 10 MG TABLET 1 TAB PO DAILY BRONCHITIS 3 TABS PO X 3 DAYS, 2 TABS PO X 3 DAYS, 1 TAB PO X 3 DAYS START 12/15/17 Triage Note: PER PT FEELING LIGHTHEADED AND DIZZY INTERMITTANT VOMITTING NEGATIVE BLOOD A WEEK AGO ALSO ASTHMA ACTING UP FEELING SOB BP 94/50 IN TRIAGE Triage Nurses Notes Reviewed? yes Onset: Gradual Duration: day(s): Timing: recent history Injury Environment: home Severity: mild, moderate Modifying Factors: Improves With: rest. Associated Symptoms: nausea, vomiting : No Patient currently breastfeeds: No HPI: 22 yo woman, in prior good health, dizzy and lightheaded x 1 day, also with nausea and vomiting "a lot" today, with a few episodes of diarrhea. "When I stand I feel like I am going to pass out." She notes also chest wall pain, left lower quadrant pain, dyspnea, headache, without fever, chills, neck pain. She is otherwise well. Past History Travel History Traveled to [place] past 21 day No Medical History Any Pertinent Medical History? 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 No Review of Systems Review of Systems Constitutional: Reports: no symptoms. EENTM: Reports: no symptoms. Respiratory: Reports: no symptoms. Cardiovascular: Reports: no symptoms. GI: Reports: no symptoms. Genitourinary: Reports: no symptoms. Musculoskeletal: Reports: no symptoms. Skin: Reports: no symptoms. Neurological/Psychological: Reports: no symptoms. Hematologic/Endocrine: Reports: no symptoms. Immunologic/Allergic: Reports: no symptoms. All Other Systems: Reviewed and Negative Physical Exam Physical Exam General Appearance: well developed/nourished, mild distress Head: atraumatic, normal appearance, tenderness along scalp musculature Eyes: Bilateral: normal appearance. Ears, Nose, Throat: normal pharynx, normal ENT inspection Neck: normal inspection, supple, full range of motion Respiratory: normal breath sounds, chest non-tender, no respiratory distress, quiet respiration, lungs clear Cardiovascular: regular rate/rhythm Gastrointestinal: normal bowel sounds, soft, no organomegaly, llq tenderness to palpation. no rebound. no guarding. Back: normal inspection, normal range of motion Extremities: normal inspection, normal capillary refill, normal range of motion, no edema Neurologic/Psych: no motor/sensory deficits, awake, alert, oriented x 3 Skin: intact, normal color, warm/dry Core Measures ACS in differential dx? No CVA/TIA Diagnosis: No Sepsis Present: No Sepsis Focused Exam Completed? No Progress Differential Diagnoses I considered the following diagnoses in my evaluation of the patient: dehydration, viral syndrome vs other. Plan of Care: Orders Procedure Date/time Status TROPONIN LEVEL 12/29 2214 Complete LIPASE 12/29 2214 Complete HEPATIC FUNCTION PANEL 12/29 2214 Complete HUMAN BETA HCG SCREEN 12/29 2214 Complete D-DIMER 12/29 2214 Complete CBC WITHOUT DIFFERENTIAL 12/29 2214 Complete BASIC METABOLIC PANEL 12/29 2214 Complete AMYLASE 12/29 2214 Complete EKG 12/29 2214 Active Laboratory Tests 12/29/17 2251: Anion Gap 16, Estimated GFR > 60, BUN/Creatinine Ratio 12.9, Glucose 94, Calcium 10.1, Total Bilirubin 0.7, Direct Bilirubin 0.4, AST 21, ALT 26, Alkaline Phosphatase 63, Troponin I < 0.01, Total Protein 8.5 H, Albumin 4.9, Amylase 107, Lipase 163, Total Beta HCG NEGATIVE, D-Dimer High Sensitivty < 200, CBC w Diff NO MAN DIFF REQ, RBC 4.53, MCV 87.5, MCH 29.4, MCHC 33.6, RDW 12.7, MPV 8.0 , Gran % 65.8, Lymphocytes % 28.4, Monocytes % 5.0, Eosinophils % 0.5, Basophils % 0.3, Absolute Granulocytes 6.5, Absolute Lymphocytes 2.8, Absolute Monocytes 0.5, Absolute Eosinophils 0.1, Absolute Basophils 0 Diagnostic Imaging: Viewed by Me: Radiology Read, CT Scan. Discussed w/RAD: Radiology Read, CT Scan. Radiology Impression: PATIENT: MADYSON CONDE PRESENT AGE: 22 PATIENT ACCOUNT NO: [id number] : 96 LOCATION: [facility] ORDERING PHYSICIAN: Chris Markham MD SERVICE DATE: 12/29/17 EXAM TYPE: CAT - CT HEAD WO IV CONTRAST EXAMINATION: CT HEAD WITHOUT CONTRAST CLINICAL INFORMATION: Headache. COMPARISON: MRI 01/25/2017 TECHNIQUE: Contiguous axial imaging was performed from the skull base to vertex without intravenous contrast. DLP: 704 mGy-cm. FINDINGS: There is no evidence of acute intracranial hemorrhage or territorial infarction. No abnormal mass effect or midline shift is seen. Terrell to white matter differentiation is well preserved. No extra-axial fluid collections are identified. No hydrocephalus. No significant volume loss. There is no abnormal attenuation within the brain parenchyma. The osseous structures and soft tissues are normal. The mastoid air cells and visualized portions of the paranasal sinuses are well aerated. IMPRESSION: No acute intracranial pathology. DICTATED BY: Gabriel Kuo MD DATE/TIME DICTATED:2352 SERVICE COUNTER CASHIER:MADELYN DATE/TIME TRANSCRIBED:12/29/172352 CONFIDENTIAL, DO NOT COPY WITHOUT APPROPRIATE AUTHORIZATION. <Electronically signed in Other Vendor System> SIGNED BY: Gabriel Kuo MD 12/29/172356, PATIENT: MADYSON CONDE PRESENT AGE: 22 PATIENT ACCOUNT NO: [id number] : 96 LOCATION: [facility] ORDERING PHYSICIAN: Chris Markham MD SERVICE DATE: 12/29/17 EXAM TYPE: CAT - CT ABD & PELVIS W/O IV CONTRAS EXAMINATION: CT ABDOMEN AND PELVIS WITHOUT CONTRAST CLINICAL INFORMATION: Left lower quadrant pain. COMPARISON: 07/12/2016 TECHNIQUE : Multidetector volumetric imaging was performed from the superior aspect of the liver through the pubic symphysis. Sagittal and coronal reformatted images were obtained on the technologist's workstation. DLP: 487 mGy-cm FINDINGS: LUNG BASES : The visualized lung bases are unremarkable. LIVER, GALLBLADDER, AND BILIARY TREE: The liver is normal in size, shape, and attenuation. No focal hepatic lesion or biliary ductal dilatation is present. The gallbladder is unremarkable with no evidence of radiopaque gallstones, gallbladder wall thickening, or obvious pericholecystic inflammatory changes. PANCREAS: Unremarkable. SPLEEN: Unremarkable. ADRENAL GLANDS: Unremarkable. KIDNEYS AND URETERS: The kidneys are normal in size, shape, and attenuation. No hydronephrosis, hydroureter, or calculi seen. No perinephric stranding. BLADDER: Unremarkable. GASTROINTESTINAL TRACT: The stomach is unremarkable. The small bowel is normal in caliber. No obstruction. Normal appendix. No colonic wall thickening or inflammatory change. No free air or free fluid. ABDOMINAL WALL: No significant hernia is appreciated. LYMPH NODES: Normal. VASCULAR: Unremarkable. PELVIC VISCERA: The uterus is unremarkable. Contraceptive ring in place. Asymmetric prominence of the left ovary compared to the right. This is similar to the previous CT. No focal cyst identified. OSSEOUS STRUCTURES: Unremarkable. IMPRESSION: No acute findings of the abdomen or pelvis. No inflammatory changes. No free fluid. DICTATED BY: Gabriel Kuo MD DATE/TIME DICTATED:12/29/172353 SERVICE COUNTER CASHIER: MADELYN DATE/TIME TRANSCRIBED:12/29/172353 CONFIDENTIAL, DO NOT COPY WITHOUT APPROPRIATE AUTHORIZATION. <Electronically signed in Other Vendor System> SIGNED BY: Gabriel Kuo MD 12/30/17 0003, PATIENT: MADYSON CONDE PRESENT AGE: 22 PATIENT ACCOUNT NO: [id number] : 96 LOCATION: [facility] ORDERING PHYSICIAN: Chris Markham MD SERVICE DATE: 12/29/17 EXAM TYPE: RAD - XRY-PORTABLE CHEST XRAY EXAMINATION : XR PORTABLE CHEST CLINICAL INFORMATION: Chest pain COMPARISON: Chest x-ray TECHNIQUE: Portable frontal view of the chest was obtained. 11:36 PM FINDINGS: No significant abnormality is noted involving the heart, lungs, mediastinum, bony thorax or soft tissues. IMPRESSION: Unremarkable examination. DICTATED BY: Gibran Espinal MD DATE/TIME DICTATED:12/29/172353 SERVICE COUNTER CASHIER :MADELYN DATE/TIME TRANSCRIBED:12/29/172353 CONFIDENTIAL, DO NOT COPY WITHOUT APPROPRIATE AUTHORIZATION. <Electronically signed in Other Vendor System> SIGNED BY: Gibran Espinal MD 12/29/172358 Initial ED EKG: normal axis, normal intervals, normal p-waves, normal QRS complex, normal sinus rhythm Departure Departure Disposition: HOME OR SELF CARE Condition: Stable Clinical Impression Primary Impression: Headache Secondary Impressions: Abdominal pain, Dehydration Referrals: Patient Has No Primary Care Dr (PCP/Family) Departure Forms: Customer Survey General Discharge Information Prescriptions: Current Visit Scripts Pantoprazole Sodium (Protonix) 1 TAB PO DAILY #30 TAB Ref 1 Ondansetron (Zofran Odt) 1 TAB SL TID #10 TAB Ref 1 Ibuprofen 1 TAB PO TID PRN pain #30 TAB Comments pt feeling better after supportive medications. pt safe for discharge. Critical Care Note Critical Care Note Critical Care Time: non-applicable
[2017-12-29 22:57] LABS: ABSOLUTE BASOPHIL COUNT 0 /CUMM (0.0-0.2); ABSOLUTE EOSINOPHIL COUNT 0.1 /CUMM (0.0-0.7); ABSOLUTE GRANULOCYTE CT 6.5 /CUMM (1.4-6.5); ABSOLUTE LYMPH COUNT 2.8 /CUMM (1.2-3.4); ABSOLUTE MONOCYTE COUNT 0.5 /CUMM (0.10-0.60); BASOPHIL % 0.3 % (0.0-2.0); EOSINOPHIL % 0.5 % (0-5); GRANULOCYTE % 65.8 % (42.2-75.2); HEMATOCRIT 39.7 % (37-47); MEAN CORPUSCULAR HGB 29.4 PG (27.0-31.0); MEAN CORPUSCULAR HGB CONC 33.6 G/DL (33.0-37.0); MEAN CORPUSCULAR VOLUME 87.5 FL (81.0-99.0); PLATELET COUNT 348 /CUMM (130-400); RBC DISTRIBUTION WIDTH 12.7 % (11.5-14.5); RED BLOOD CELL CT 4.53 /CUMM (4.20-5.40); WHITE BLOOD CELL COUNT 9.9 /CUMM (4.8-10.8)
[2017-12-29 23:33] VITALS: BP 104/76
--- NOTE | 2017-12-29 23:57 | CT SCAN REPORT ---
EXAMINATION: CT HEAD WITHOUT CONTRAST CLINICAL INFORMATION: Headache. COMPARISON: MRI 01/25/2017 TECHNIQUE: Contiguous axial imaging was performed from the skull base to vertex without intravenous contrast. DLP: 704 mGy-cm. FINDINGS: There is no evidence of acute intracranial hemorrhage or territorial infarction. No abnormal mass effect or midline shift is seen. Terrell to white matter differentiation is well preserved. No extra-axial fluid collections are identified. No hydrocephalus. No significant volume loss. There is no abnormal attenuation within the brain parenchyma. The osseous structures and soft tissues are normal. The mastoid air cells and visualized portions of the paranasal sinuses are well aerated. IMPRESSION: No acute intracranial pathology.
--- NOTE | 2017-12-29 23:59 | RADIOLOGY REPORT ---
EXAMINATION: XR PORTABLE CHEST CLINICAL INFORMATION: Chest pain COMPARISON: Chest x-ray 12/07/2017 TECHNIQUE: Portable frontal view of the chest was obtained. 11:36 PM FINDINGS: No significant abnormality is noted involving the heart, lungs, mediastinum, bony thorax or soft tissues. IMPRESSION: Unremarkable examination.
--- NOTE | 2017-12-30 00:03 | CT SCAN REPORT ---
EXAMINATION: CT ABDOMEN AND PELVIS WITHOUT CONTRAST CLINICAL INFORMATION: Left lower quadrant pain. COMPARISON: 07/12/2016 TECHNIQUE: Multidetector volumetric imaging was performed from the superior aspect of the liver through the pubic symphysis. Sagittal and coronal reformatted images were obtained on the technologist's workstation. DLP: 487 mGy-cm FINDINGS: LUNG BASES: The visualized lung bases are unremarkable. LIVER, GALLBLADDER, AND BILIARY TREE: The liver is normal in size, shape, and attenuation. No focal hepatic lesion or biliary ductal dilatation is present. The gallbladder is unremarkable with no evidence of radiopaque gallstones, gallbladder wall thickening, or obvious pericholecystic inflammatory changes. PANCREAS: Unremarkable. SPLEEN: Unremarkable. ADRENAL GLANDS: Unremarkable. KIDNEYS AND URETERS: The kidneys are normal in size, shape, and attenuation. No hydronephrosis, hydroureter, or calculi seen. No perinephric stranding. BLADDER: Unremarkable. GASTROINTESTINAL TRACT: The stomach is unremarkable. The small bowel is normal in caliber. No obstruction. Normal appendix. No colonic wall thickening or inflammatory change. No free air or free fluid. ABDOMINAL WALL: No significant hernia is appreciated. LYMPH NODES: Normal. VASCULAR: Unremarkable. PELVIC VISCERA: The uterus is unremarkable. Contraceptive ring in place. Asymmetric prominence of the left ovary compared to the right. This is similar to the previous CT. No focal cyst identified. OSSEOUS STRUCTURES: Unremarkable. IMPRESSION: No acute findings of the abdomen or pelvis. No inflammatory changes. No free fluid.
[2017-12-30] MEDS ORDERED: ZOFRAN ODT4 M1 SL (00:27)
[2017-12-30] MEDS ORDERED: PROTONIX40 M3 PO (00:27)
[2017-12-30] MEDS ORDERED: IBUPROFEN800 M1 PO (00:28)
== END 2017-12-30 00:40 ==
LOC: ERH 21:00
PROVIDERS: Pediatrics
DX: E86.0 Dehydration (principal); R51 Headache; R10.32 Left lower quadrant pain; R07.89 Other chest pain
CPT/HCPCS: 71045; 74176; 93005; 93010; 96374; 96375; J1885; J2405

== ENCOUNTER → 2018-03-09 | Day surgery (SDC) | payer OTHER ==
--- NOTE | 2018-03-08 16:59 | History & Physical Pre-Op ---
General Information and HPI History of Present Illness: Patient is a 23-year-old female with chronic menorrhagia who has been taking Nuvaring but poorly controlled admitted today for Mirena placement and D&C hysteroscopy. Allergies/Medications Allergies: Coded Allergies: pineapple (TONGUE AND FACIAL SWELLING 03/06/18) Home Med list Albuterol Sulfate 2.5 MG/3 ML (0.083 %) VIAL.NEB 1 Vial INH/SINDI AD PRN ASTHMA (Reported) Etonogestrel/Ethinyl Estradiol (Nuvaring Vaginal Ring) 0.12 MG -0.015 MG/24 HR VAG.RING 1 EACH VG Q30D CONTROL (Reported) use for 3 weeks, skip for 1 week Fluticasone Propionate (Flovent Diskus) 50 MCG BLST.W.DEV 1 PUFF INH BID ASTHMA (Reported) Fluticasone-Salmeterol (Advair 100-50 Diskus) 100 MCG-50 MCG/DOSE BLST.W.DEV 1 PUF INH BID ASTHMA (Reported) Ibuprofen 800 MG TABLET 1 TAB PO AD PRN PAIN (Reported) Nitrofurantoin Macrocrystal (Nitrofurantoin) 100 MG CAPSULE 1 CAP PO BID ABX (Reported) Ondansetron (Zofran Odt) 4 MG TAB.RAPDIS 1 TAB SL TID nausea/vomiting Past History Medical History Neurological: migraine, idiopathic paralysis EENT: NONE Cardiovascular: NONE Respiratory: asthma Gastrointestinal: NONE Hepatic: NONE Renal: NONE Musculoskeletal: NONE Psychiatric: NONE Endocrine: NONE Blood Disorders: NONE Cancer(s): NONE 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 Family Services at Home None Primary Language: Yi Functional Ability ADLs Independent: dressing, eating, toileting, bathing. Ambulation: independent, walker IADLs Independent: shopping, housework, finances, food prep, telephone, transportation , medication admin. Exam & Diagnostic Data Last 24 Hrs of Vital Signs/I&O Intake & Output 03/08 1600 03/08 0800 03/08 0000 Intake Total Output Total Balance Patient 190 lb Weight Physical Exam: HEENT: Normocephalic atraumatic Chest: Clear to auscultation bilaterally Cardiovascular: Normal S1 and S2 Abdomen: Obese soft nontender Pelvic: Deferred for Extremities no clubbing cyanosis or edema Neurologic: Nonfocal Assessment/Plan Assessment/Plan: Menorrhagia Plan D&C hysteroscopy Liletta IUD insertion As Ranked By This Provider Problem List: 1. Menorrhagia
[~2018-03-09] VITALS: Ht 154.9 cm; Wt 86.2 kg
[~2018-03-09] MED LIST changes: +ADVAIR 100-501 EACH INH; +ALBUTEROL2.5 MG/3 M INH/SOL; +FLOVENT DISKUS50 MCG INH; +IBUPROFEN800 M1 PO; +NITROFURANTOIN100 M5 PO; +PROTONIX40 M3 PO
--- NOTE | 2018-03-17 11:16 | Operative Report ---
Operative/Inv Procedure Report Surgery Date: 03/09/18 Name of Procedure: D&C hysteroscopy insertion of IUD Pre-Operative Diagnosis: Dysfunctional uterine bleeding Post-Operative Diagnosis: Same Estimated Blood Loss: less than 50ml Surgeon/Health Program Manager: Von Huber MD Anesthesia: moderate sedation Operative/Procedure Note Note: Patient was brought to the operating room placed on the OR table in the dorsal supine position. She was given adequate anesthesia and placed into dorsal lithotomy. She was prepped and draped in usual sterile fashion. Patient was inserted into the vagina with help of the Dahlgren retractor single-tooth tenaculum was attached and she'll lip of the cervix. Cervix was injected with 1 % lidocaine with epinephrine 2-1/2 mL per quadrant. Endocervical curettage was performed revealing a small amount of tissue. The uterus was then sounded to 8 cm. Cervix was serially dilated to accommodate the hysteroscope which was placed into the fundus and the saline infusion was activated. Shaggy endometrium was noted throughout and no fibroids or polyps were noted. The hysteroscope was removed and the cervix was further dilated. An endoscope Gray curettage was performed revealing a moderate amount of tissue. At this point the Liletta IUD (provided by Dr. Huber) was placed into the uterus without complication. The strings were cut hemostasis was verified in the isthmus removed patient was then awakened sent to recovery in good condition. All needle, sponge, and instrument counts were correct at the end of the procedure 2.
== END ==
LOC: STS 02:51
DX: N93.8 Other specified abnormal uterine and vaginal bleeding (principal); Z30.430 Encounter for insertion of intrauterine contraceptive device; I10 Essential (primary) hypertension; K21.9 Gastro-esophageal reflux disease without esophagitis
CPT/HCPCS: 81025